=== PATIENT | male | born 1975 | race Caucasian/White ===

== ENCOUNTER 2017-02-23 12:52 | Emergency (ER) | payer BC ==
[2017-02-23] MEDS ORDERED: Proparacaine 0.5% Ophth Soln 15 ML Bottle ONE (13:49)
[2017-02-23] MEDS ORDERED: Proparacaine 0.5% Ophth Soln 15 ML Bottle EYERT ONE (14:04)
[2017-02-23] MEDS ORDERED: Diphtheria,Pertussis(Acell),Tetanus Vaccine 0.5 ML Syringe IM ONE (14:05)
--- NOTE | 2017-02-23 14:18 | EDM.PDOC ---
ED HPI GENERAL MEDICAL PROBLEM - General Chief Complaint: Eye Problems Stated Complaint: KAREEN IN HIS EYE Time Seen by Provider: 02/23/17 13:10 Source of Information: Reports: Patient History Limitations: Reports: No Limitations - History of Present Illness INITIAL COMMENTS - FREE TEXT/NARRATIVE: HISTORY AND PHYSICAL: []41-year-old male who was grinding metal yesterday and felt something hit his right eye History of Present Illness: []He continues to have pain today and presents to emergency department Review of Systems: As per history of present illness and below otherwise all systems reviewed and negative. Past medical history: As per history of present illness and as reviewed below otherwise noncontributory. Surgical history: As per history of present illness and as reviewed below otherwise noncontributory. Social history: No reported history of drug or alcohol abuse. Family history: As per history of present illness and as reviewed below otherwise noncontributory. Physical exam: Alert and oriented male who is answering questions appropriately in full sentences no shortness of breath. Proparacaine is introduced into the right eye HEENT: Atraumatic, normocehpalic, pupils reactive, negative for conjunctival pallor or scleral icterus, mucous membranes moist, throat clear, neck supple, nontender, trachea midline. Right eye is quite erythematous there at the 9 o' clock position on the edge of the pupil /cornea there is a foreign body Lungs: Clear to auscultation, breath sounds equal bilaterally, chest non tender. Heart: S1S2, regular, negative for clicks, rubs, or JVD. Extremities: Atraumatic, negative for cords or calf pain. Neurovascular unremarkable. Neuro: Awake, alert, oriented. Cranial nerves II through XII unremarkable. Cerebellum unremarkable. Motor and sensory unremarkable throughout. Exam nonfocal. Using a Q-tip across this area a portion of the metal came off on the Q-tip. Under a Wood's lamp Diagnostics: [Wood's lamp] Therapeutics: []15 drops Impression: [Foreign body to right eye] Plan: [Discharged to be seen at [facility] Dr. Vang will need to there are at 3 PM Please go to the main front door] Definitive disposition and diagnosis as appropriate pending reevaluation and review of above. - Related Data Allergies Allergy/AdvReac Type Severity Reaction Status Date / Time No Known Allergies Allergy Verified 02/23/17 13:57 Home Meds: Home Meds Cyanocobalamin/Folic AC/Vit B6 [Foltabs 800 Tablet] 0 mg PO DAILY 02/23/17 [ History] Omeprazole Magnesium [Prilosec] 0 mg PO DAILY 02/23/17 [History] Past Medical History - Past Health History Medical/Surgical History: Denies Medical/Surgical History Respiratory History: Reports: Sleep Apnea Other Respiratory History: sleep apnea went away with gastric bypass Gastrointestinal History: Reports: None Endocrine/Metabolic History: Reports: Other (See Below) Other Endocrine/Metabolic History: pre-diabetes - Infectious Disease History Infectious Disease History: Reports: Chicken Pox - Past Surgical History Respiratory Surgical History: Reports: None GI Surgical History: Reports: None Other GI Surgeries/Procedures: gastric bypass Social & Family History - Family History Family Medical History: Noncontributory - Tobacco Use Smoking Status *Q: Never Smoker Years of Tobacco use: 20 Packs/Tins Daily: 1 Used Tobacco, but Quit: No Second Hand Smoke Exposure: No - Caffeine Use Caffeine Use: Reports: Coffee - Alcohol Use Days Per Week of Alcohol Use: 7 Number of Drinks Per Day: 1 Total Drinks Per Week: 7 - Recreational Drug Use Recreational Drug Use: No ED ROS GENERAL - Review of Systems Review Of Systems: ROS reveals no pertinent complaints other than HPI. ED EXAM GENERAL W FULL EYE - Physical Exam Exam: See Below (see dictation) Course - Vital Signs Last Recorded V/S: Last Vital Signs Temp 36.3 C 02/23/17 13:47 Pulse 69 02/23/17 13:47 Resp 17 02/23/17 13:47 BP 133/80 02/23/17 13:47 Pulse Ox 97 02/23/17 13:47 - Orders/Labs/Meds Orders: Active Orders 24 hr Category Date Time Status Vaccines to be Administered [RC] PER UNIT ROUTINE Care 02/23/17 14:05 Ordered Meds: Medications Discontinued Medications Generic Name Dose Route Start Last Admin Trade Name Freq PRN Reason Stop Dose Admin Diphtheria/Tetanus/Acell Pertussis 0.5 ml 02/23/17 14:05 Adacel IM 02/23/17 14:06 .ONCE ONE Proparacaine HCl Confirm 02/23/17 13:49 Proparacaine 0.5% Ophth Soln Administered 02/23/17 13:50 Dose 15 ml .ROUTE .STK-MED ONE Proparacaine HCl 1 ml 02/23/17 14:04 Proparacaine 0.5% Ophth Soln EYERT 02/23/17 14:05 ONETIME ONE Departure - Departure Time of Disposition: 14:19 Disposition: Home, Self-Care 01 Condition: Good Clinical Impression: Foreign body of right eye Qualifiers: Encounter type: initial encounter Qualified Code(s): T15.91XA - Foreign body on external eye, part unspecified, right eye, initial encounter - Discharge Information Referrals: Yuridia Akins COTTON BROKER [Primary Care Provider] - - My Orders Last 24 Hours: My Active Orders 02/23/17 14:05 Vaccines to be Administered [RC] PER UNIT ROUTINE - Assessment/Plan Last 24 Hours: My Active Orders 02/23/17 14:05 Vaccines to be Administered [RC] PER UNIT ROUTINE
[2017-02-23 14:36] VITALS: BP 115/64
== END 2017-02-23 14:30 | disposition home or self-care (01) ==
LOC: MW.ED 12:52
DX: T15.01XA Foreign body in cornea, right eye, initial encounter (principal); Z23 Encounter for immunization
CPT/HCPCS: 65220; 90471; 90715; 99283; 99283-25

== ENCOUNTER 2018-09-14 13:05 | Emergency (ER) | payer BC ==
--- NOTE | 2018-09-14 13:16 | EDM.PDOC ---
ED HPI GENERAL MEDICAL PROBLEM - General Stated Complaint: BUMP ON RT SIDE OF HEAD Time Seen by Provider: 09/14/18 13:09 - History of Present Illness INITIAL COMMENTS - FREE TEXT/NARRATIVE: HISTORY AND PHYSICAL: History of present illness: Patient 42-year-old white male sensory concern of subcutaneous nodule in the postauricular region 2 days. He does not recall any trauma to no fever chills nausea vomiting or other complaints at this slightly tender Review of systems: As per history of present illness and below otherwise all systems reviewed and negative. Past medical history: As per history of present illness and as reviewed below otherwise noncontributory. Surgical history: As per history of present illness and as reviewed below otherwise noncontributory. Social history: No reported history of drug or alcohol abuse. Family history: As per history of present illness and as reviewed below otherwise noncontributory. Physical exam: HEENT: Atraumatic, normocephalic, pupils reactive, negative for conjunctival pallor or scleral icterus, mucous membranes moist, throat clear, neck supple, nontender, trachea midline. Patient has a subcutaneous nodule is noted in the postauricular region on the right this is suspicious for a lymph node. Lungs: Clear to auscultation, breath sounds equal bilaterally, chest nontender. Heart: S1S2, regular, negative for clicks, rubs, or JVD. Abdomen: Soft, nondistended, nontender. Negative for masses or hepatosplenomegaly. Negative for costovertebral tenderness. Pelvis: Stable nontender. Genitourinary: Deferred. Rectal: Deferred. Extremities: Atraumatic, negative for cords or calf pain. Neurovascular unremarkable. Neuro: Awake, alert, oriented. Cranial nerves II through XII unremarkable. Cerebellum unremarkable. Motor and sensory unremarkable throughout. Exam nonfocal. Diagnostics: None Therapeutics: None Impression: #1 subcutaneous nodule rule out adenitis Definitive disposition and diagnosis as appropriate pending reevaluation and review of above. - Related Data Allergies Allergy/AdvReac Type Severity Reaction Status Date / Time No Known Allergies Allergy Verified 02/23/17 13:57 Home Meds: Home Meds Cyanocobalamin/Folic AC/Vit B6 [Foltabs 800 Tablet] 0 mg PO DAILY 02/23/17 [ History] Omeprazole Magnesium [Prilosec] 0 mg PO DAILY 12/02/17 [History] Past Medical History - Past Health History Medical/Surgical History: Denies Medical/Surgical History Respiratory History: Reports: Sleep Apnea Other Respiratory History: sleep apnea went away with gastric bypass Gastrointestinal History: Reports: None Endocrine/Metabolic History: Reports: Other (See Below) Other Endocrine/Metabolic History: pre-diabetes - Infectious Disease History Infectious Disease History: Reports: Chicken Pox - Past Surgical History Respiratory Surgical History: Reports: None GI Surgical History: Reports: None Other GI Surgeries/Procedures: gastric bypass Social & Family History - Family History Family Medical History: Noncontributory - Caffeine Use Caffeine Use: Reports: Coffee ED ROS GENERAL - Review of Systems Review Of Systems: ROS reveals no pertinent complaints other than HPI. ED EXAM, GENERAL - Physical Exam Exam: See Below (See dictation) Departure - Departure Time of Disposition: 13:15 Disposition: Home, Self-Care 01 Condition: Good Clinical Impression: Subcutaneous nodule, Adenitis - Discharge Information Referrals: PCP,None [Primary Care Provider] - Additional Instructions: The following information is given to patients seen in the emergency department who are being discharged to home. This information is to outline your options for follow-up care. We provide all patients seen in our emergency department with a follow-up referral. The need for follow-up, as well as the timing and circumstances, are variable depending upon the specifics of your emergency department visit. If you don't have a primary care physician on staff, we will provide you with a referral. We always advise you to contact your personal physician following an emergency department visit to inform them of the circumstance of the visit and for follow-up with them and/or the need for any referrals to a consulting specialist. The emergency department will also refer you to a specialist when appropriate. This referral assures that you have the opportunity for followup care with a specialist. All of these measure are taken in an effort to provide you with optimal care, which includes your followup. Under all circumstances we always encourage you to contact your private physician who remains a resource for coordinating your care. When calling for followup care, please make the office aware that this follow-up is from your recent emergency room visit. If for any reason you are refused follow-up, please contact the [facility] emergency department at and asked to speak to the emergency department charge nurse. [facility] - General Surgery Professional [address], [address] [place] [address] Keflex as prescribed and follow-up private medical doctor and/or general surgery above: Schedule appointment return as needed as discussed Motrin/ Tylenol as directed
[2018-09-14 13:32] VITALS: BP 140/91
== END 2018-09-14 13:33 | disposition home or self-care (01) ==
LOC: MW.ED 13:05
DX: I88.8 Other nonspecific lymphadenitis (principal); R22.0 Localized swelling, mass and lump, head; R73.03 Prediabetes; Z79.899 Other long term (current) drug therapy
CPT/HCPCS: 99282

== ENCOUNTER 2021-01-11 23:44 | Inpatient (IN) | payer BC, MEDICAID, OTHER ==
--- NOTE | 2021-01-12 00:09 | EDM.PDOC ---
ED HPI GENERAL MEDICAL PROBLEM - General Chief Complaint: General Stated Complaint: ALCOHOL WITHDRAWL, TREMORS Time Seen by Provider: 01/11/21 23:46 Source of Information: Reports: Patient History Limitations: Reports: No Limitations - History of Present Illness INITIAL COMMENTS - FREE TEXT/NARRATIVE: 45-year-old male presents for alcohol withdrawal symptoms. Patient notes that he has had minor withdrawal symptoms in the past with some irritability and shakiness but nothing to the degree of today. He notes that he went on a "mills "drinking 2 L of alcohol a few days ago and made some bad decisions causing him to get into an argument with his friends. He made the decision that he needs to stop drinking. He stopped cold turkey. He states that over the last day he has developed shaking, tremors, anxiousness, headache, nausea, episode of vomiting earlier today. This evening he began to develop visual hallucinations and tactile sensations of bugs crawling on his skin. He read online that he could develop seizures which is never happened to him with alcohol withdrawal in the past and decided to seek medical attention. Generalized Pain Score (Numeric/FACES): 2 - Related Data Allergies Allergy/AdvReac Type Severity Reaction Status Date / Time No Known Allergies Allergy Verified 09/14/18 13:20 Home Meds: Home Meds . [No Known Home Meds] 09/14/18 [History] Past Medical History - Past Health History Medical/Surgical History: Denies Medical/Surgical History Respiratory History: Reports: Sleep Apnea Other Respiratory History: sleep apnea went away with gastric bypass Gastrointestinal History: Reports: None Endocrine/Metabolic History: Reports: Other (See Below) Other Endocrine/Metabolic History: pre-diabetes - Infectious Disease History Infectious Disease History: Reports: Chicken Pox - Past Surgical History Respiratory Surgical History: Reports: None GI Surgical History: Reports: Bariatric Procedure Other GI Surgeries/Procedures: gastric bypass Social & Family History - Family History Family Medical History: No Pertinent Family History - Caffeine Use Caffeine Use: Reports: Coffee ED ROS GENERAL - Review of Systems Review Of Systems: Comprehensive ROS is negative, except as noted in HPI. ED EXAM, GENERAL - Physical Exam Exam: See Below Exam Limited By: No Limitations General Appearance: Alert, WD/WN, Anxious, Other (Generalized tremors) Ears: Hearing Grossly Normal Throat/Mouth: Normal Voice, No Airway Compromise Head: Atraumatic, Normocephalic Neck: Normal Inspection Respiratory/Chest: No Respiratory Distress, Lungs Clear, Normal Breath Sounds, No Accessory Muscle Use Cardiovascular: Normal Peripheral Pulses, Tachycardia GI/Abdominal: Soft, Non-Tender Extremities: Normal Inspection Neurological: Alert, Normal Cognition, Normal Gait Psychiatric: Normal Affect, Normal Mood, Anxious Skin Exam: Warm, Intact, Normal Color, Other (mild diaphoresis) #1 Interpretation EKG Date: 01/12/21 Time: 12:26 Rhythm: NSR Rate (Beats/Min): 77 [place]: Normal P-Wave: Present QRS: Normal ST-T: Normal QT: Normal DC/PQ Interval: 138 Comparison: NA - No Prior EKG EKG Interpretation Comments: normal EKG Course - Vital Signs Last Recorded V/S: Last Vital Signs Temp 97.3 F 01/11/21 23:54 Pulse 117 H 01/11/21 23:54 Resp 18 01/12/21 01:29 BP 128/76 01/12/21 01:29 Pulse Ox 97 01/12/21 01:29 - Orders/Labs/Meds Orders: Active Orders 24 hr Category Date Time Status LORazepam [Ativan] Med 01/12/21 01:38 Once 1 mg IVPUSH ONETIME ONE Saline Lock Insert [OM.PC] Stat Oth 01/12/21 00:13 Ordered Labs: Laboratory Tests 01/12/21 01/12/21 01/12/21 Range/Units 00:02 00:02 00:15 WBC 11.67 H (4.0-11.0) K/uL RBC 4.81 (4.50-5.90) M/uL Hgb 16.5 (13.0-17.0) g/dL Hct 47.1 (38.0-50.0) % MCV 97.9 (80.0-98.0) fL MCH 34.3 H (27.0-32.0) pg MCHC 35.0 (31.0-37.0) g/dL RDW Std Deviation 42.0 (28.0-62.0) fl RDW Coeff of Greg 12 (11.0-15.0) % Plt Count 300 (150-400) K/uL MPV 9.90 (7.40-12.00) fL Neut % (Auto) 73.5 (48.0-80.0) % Lymph % (Auto) 15.2 L (16.0-40.0) % [place] % (Auto) 10.5 (0.0-15.0) % Eos % (Auto) 0.3 (0.0-7.0) % Baso % (Auto) 0.5 (0.0-1.5) % Neut # (Auto) 8.6 H (1.4-5.7) K/uL Lymph # (Auto) 1.8 (0.6-2.4) K/uL [place] # (Auto) 1.2 H (0.0-0.8) K/uL Eos # (Auto) 0.0 (0.0-0.7) K/uL Baso # (Auto) 0.1 (0.0-0.1) K/uL Sodium 137 (136-148) mmol/L Potassium 4.0 (3.5-5.1) mmol/L Chloride 98 (98-107) mmol/L Carbon Dioxide 25.7 (21.0-32.0) mmol/L BUN 11 (7.0-18.0) mg/dL Creatinine 1.1 (0.8-1.3) mg/dL Est Cr Clr Drug Dosing 80.12 mL/min Estimated GFR (MDRD) > 60.0 ml/min Glucose 123 H (74-106) mg/dL Calcium 10.3 H (8.5-10.1) mg/dL Magnesium 2.3 (1.8-2.4) mg/dL Total Bilirubin 1.1 H (0.2-1.0) mg/dL AST 81 H (15-37) IU/L ALT 41 (14-63) IU/L Alkaline Phosphatase 135 H (46-116) U/L Total Protein 7.8 (6.4-8.2) g/dL Albumin 4.2 (3.4-5.0) g/dL Globulin 3.6 (2.6-4.0) g/dL Albumin/Globulin Ratio 1.2 (0.9-1.6) Urine Opiates Screen POSITIVE (NEGATIVE) Ur Oxycodone Screen NEGATIVE (NEGATIVE) Urine Methadone Screen NEGATIVE (NEGATIVE) Ur Barbiturates Screen NEGATIVE (NEGATIVE) Ur Phencyclidine Scrn NEGATIVE (NEGATIVE) Ur Amphetamine Screen POSITIVE (NEGATIVE) U Methamphetamines Scrn POSITIVE (NEGATIVE) U Benzodiazepines Scrn NEGATIVE (NEGATIVE) U Cocaine Metab Screen NEGATIVE (NEGATIVE) U Marijuana (THC) Screen POSITIVE (NEGATIVE) Ethyl Alcohol <3 mg/dL SARS-CoV-2 RNA (MARIBEL) (NEGATIVE) 01/12/21 Range/Units 00:30 WBC (4.0-11.0) K/uL RBC (4.50-5.90) M/uL Hgb (13.0-17.0) g/dL Hct (38.0-50.0) % MCV (80.0-98.0) fL MCH (27.0-32.0) pg MCHC (31.0-37.0) g/dL RDW Std Deviation (28.0-62.0) fl RDW Coeff of Greg (11.0-15.0) % Plt Count (150-400) K/uL MPV (7.40-12.00) fL Neut % (Auto) (48.0-80.0) % Lymph % (Auto) (16.0-40.0) % [place] % (Auto) (0.0-15.0) % Eos % (Auto) (0.0-7.0) % Baso % (Auto) (0.0-1.5) % Neut # (Auto) (1.4-5.7) K/uL Lymph # (Auto) (0.6-2.4) K/uL [place] # (Auto) (0.0-0.8) K/uL Eos # (Auto) (0.0-0.7) K/uL Baso # (Auto) (0.0-0.1) K/uL Sodium (136-148) mmol/L Potassium (3.5-5.1) mmol/L Chloride (98-107) mmol/L Carbon Dioxide (21.0-32.0) mmol/L BUN (7.0-18.0) mg/dL Creatinine (0.8-1.3) mg/dL Est Cr Clr Drug Dosing mL/min Estimated GFR (MDRD) ml/min Glucose (74-106) mg/dL Calcium (8.5-10.1) mg/dL Magnesium (1.8-2.4) mg/dL Total Bilirubin (0.2-1.0) mg/dL AST (15-37) IU/L ALT (14-63) IU/L Alkaline Phosphatase (46-116) U/L Total Protein (6.4-8.2) g/dL Albumin (3.4-5.0) g/dL Globulin (2.6-4.0) g/dL Albumin/Globulin Ratio (0.9-1.6) Urine Opiates Screen (NEGATIVE) Ur Oxycodone Screen (NEGATIVE) Urine Methadone Screen (NEGATIVE) Ur Barbiturates Screen (NEGATIVE) Ur Phencyclidine Scrn (NEGATIVE) Ur Amphetamine Screen (NEGATIVE) U Methamphetamines Scrn (NEGATIVE) U Benzodiazepines Scrn (NEGATIVE) U Cocaine Metab Screen (NEGATIVE) U Marijuana (THC) Screen (NEGATIVE) Ethyl Alcohol mg/dL SARS-CoV-2 RNA (MARIBEL) NEGATIVE (NEGATIVE) Meds: Medications Discontinued Medications Generic Name Dose Route Start Last Admin Trade Name Freq PRN Reason Stop Dose Admin Sodium Chloride 1,000 mls @ 999 mls/hr 01/12/21 00:13 01/12/21 00:19 Normal Saline IV 01/12/21 01:13 999 mls/hr .Bolus ONE Administration Lorazepam 2 mg 01/12/21 00:14 01/12/21 00:18 Lorazepam 2 Mg/Ml Sdv IVPUSH 01/12/21 00:15 2 mg ONETIME ONE Administration - Re-Assessments/Exams Free Text/Narrative Re-Assessment/Exam: 01/12/21 00:17 CIWA of 24. Will give Ativan, IV fluid bolus. 01/12/21 00:59 Patient notes that he kicked something few days ago and has swelling of his right great toe. On exam it is ecchymotic and swollen. Will get x-ray imaging to rule out fracture. 01/12/21 01:08 Patient is feeling better after 2 mg lorazepam. No longer shaking, feeling much less anxious. 01/12/21 01:38 Patient does have a toe fracture. Will admit for alcohol withdrawal. Departure - Departure Time of Disposition: 01:39 Disposition: Admitted As Inpatient 66 Condition: Good Clinical Impression: Alcohol withdrawal Qualifiers: Complication of substance-induced condition: with unspecified complication Qualified Code(s): F10.239 - Alcohol dependence with withdrawal, unspecified - Discharge Information Referrals: Sara Crawley NP [Primary Care Provider] - Forms: ED Department Discharge Sepsis Event Note (ED) - Evaluation Sepsis Screening Result: No Definite Risk - Focused Exam Vital Signs: Vital Signs Temp Pulse Resp BP Pulse Ox 01/12/21 01:29 18 128/76 97 01/11/21 23:54 97.3 F 117 H 18 167/104 H 96 - My Orders Last 24 Hours: My Active Orders 01/12/21 00:13 Saline Lock Insert [OM.PC] Stat 01/12/21 01:38 LORazepam [Ativan] 1 mg IVPUSH ONETIME ONE - Assessment/Plan Last 24 Hours: My Active Orders 01/12/21 00:13 Saline Lock Insert [OM.PC] Stat 01/12/21 01:38 LORazepam [Ativan] 1 mg IVPUSH ONETIME ONE
[2021-01-12] MEDS ORDERED: Sodium Chloride 0.9% 1,000 ML IV ONE (00:13)
[2021-01-12] MEDS ORDERED: LORazepam 2 MG/ML SDV IVPUSH ONE ×2 (00:14→01:38)
[2021-01-12 00:38] LABS: BLOOD UREA NITROGEN,BUN 11 mg/dL (7.0-18.0); CARBON DIOXIDE,CO2 25.7 mmol/L (21.0-32.0); CHLORIDE,CL 98 mmol/L (98-107); GLUCOSE RANDOM 123 mg/dL (74-106); SODIUM,NA 137 mmol/L (136-148)
--- NOTE | 2021-01-12 01:34 | CR ---
INDICATION: Toe injury TECHNIQUE: Toe radiograph 3 views right 1st COMPARISON: None FINDINGS: Bone: There is a non displaced comminuted fracture present in the 1st proximal phalanx, likely extending to involve the distal articular surface. Joint: The metatarsophalangeal and interphalangeal joints are normal in appearance. Soft tissue: Unremarkable. No radiopaque foreign bodies are seen. IMPRESSION: 1. There is a non displaced comminuted fracture present in the 1st proximal phalanx, likely extending to involve the distal articular surface. Dictated by Arnoldo Jim MD @ 01/12/2021 1:33:15 AM Dictated by: Arnoldo Jim MD @ 01/12/2021 01:33:21 (Electronically Signed)
[2021-01-12] MEDS ORDERED: Thiamine 100 MG in Sodium Chloride 0.9% 100 ML IV SCH (01:45)
[2021-01-12] MEDS: Folic Acid 50 MG/10 ML MDV SUBCUT SCH ×2 (03:16→10:18)
--- NOTE | 2021-01-12 07:26 | PCM.HP.2 ---
H&P History of Present Illness - General Date of Service: 01/12/21 Admit Problem/Dx: Admission Diagnosis/Problem Admission Diagnosis/Problem Alcohol withdrawal syndrome - History of Present Illness Initial Comments - Free Text/Narative: 45-year-old male with a history of alcohol abuse presented to the ER for alcohol withdrawal. Last drink was Saturday night. Patient stated he had a history of minor withdrawal in the past with irritability and tremors but this episode is the worst. Patient has been drinking 2 L of vodka daily and stopped on Saturday, 4 days ago. Patient notes increased stressors in life including disagreement with friends and roommates. Patient states he stopped drinking alcohol completely and developed irritability, anxiousness, tremors, headaches, nausea and vomiting. Patient stated he began developing visual and tactile hallucinations this evening and feels as if bugs are crawling on him. No history of seizures. Patient read online that he may develop seizures so he came into the ER. Patient states he kicked a door a few days ago and also complains of swelling of his right great toe which appears ecchymotic and edematous. ED course: Patient presented with anxiousness and generalized tremors. CIWA score 24. EKG normal sinus rhythm. Temperature 97.3, pulse 117, RR 18, BP 128/76, 97% on room air. Patient received 1 mg lorazepam IV. WBC 11.67. Hgb 16.5. MCV 97.9. Sodium 137. Potassium 4.0. Chloride 98. Bicarb 25.7. BUN 11. Creatinine 1.1. Glucose 123. Calcium 10.3. Magnesium 2.3. Total bilirubin 1.1. AST 81. ALT 41. Alk phos 135. Urine toxicity positive for opiates, amphetamine, methamphetamine, and marijuana. EtOH level < 3. SARS-CoV-2 negative. Patient received 1 L normal saline bolus and 2 mg IV lorazepam. Right toe x-ray: Nondisplaced comminuted fracture and first proximal phalanx, likely extending to involve distal articular surface. Past medical history: History of gastric bypass, history of type II DM, hypertriglyceridemia. Upon chart review, patient weighed 223 pounds on May 23, 2020. Hemoglobin A1c in 2018 was 5.6. Lipid panel was within normal limits. Home medications: None. Allergies: No known drug allergies. Social history: 1-2liters of Vodka daily x 1 year. Smoking 1ppd x 18 years Daily marijuana Lives with room mates here in town. Originally from [place]. Currently unemployed. Generalized Pain Score (Numeric/FACES): 2 right big toe Pain Score (Numeric/FACES): 6 - Related Data Allergies/Adverse Reactions: Allergies Allergy/AdvReac Type Severity Reaction Status Date / Time No Known Allergies Allergy Verified 09/14/18 13:20 Home Medications: Home Meds . [No Known Home Meds] 09/14/18 [History] Multivitamin [Multi-Vitamin Daily] 1 tab PO DAILY 01/12/21 [History] Past Medical History - Past Health History Medical/Surgical History: Denies Medical/Surgical History HEENT History: Reports: Other (See Below) Other HEENT History: wears glasses, dentures (upper and lower) Respiratory History: Reports: Sleep Apnea Other Respiratory History: sleep apnea went away with gastric bypass Gastrointestinal History: Reports: None Endocrine/Metabolic History: Reports: Other (See Below) Other Endocrine/Metabolic History: pre-diabetes ( went away after gastric bypass) - Infectious Disease History Infectious Disease History: Reports: Chicken Pox, Influenza, Measles - Past Surgical History Respiratory Surgical History: Reports: None GI Surgical History: Reports: Bariatric Procedure Other GI Surgeries/Procedures: gastric bypass 2016 Social & Family History - Family History Family Medical History: No Pertinent Family History - Tobacco Use Tobacco Use Status *Q: Current Every Day Tobacco User Years of Tobacco use: 30 Packs/Tins Daily: 1 Second Hand Smoke Exposure: No - Caffeine Use Caffeine Use: Reports: Coffee, Soda, Tea - Alcohol Use Days Per Week of Alcohol Use: 7 Number of Drinks Per Day: 1 Total Drinks Per Week: 7 Date of Last Drink: 01/09/21 Time of Last Drink: 22:00 - Recreational Drug Use Recreational Drug Use: Yes Recreational Drug Type: Reports: Marijuana/Hashish Recreational Drug Use Frequency: Weekly H&P Review of Systems - Review of Systems: Review Of Systems: See Below General: Reports: Diaphoresis. Denies: Fever, Chills HEENT: Reports: Headaches. Denies: Hearing Changes, Vertigo, Visual Changes Pulmonary: Denies: Shortness of Breath, Wheezing, Cough, Sputum Cardiovascular: Denies: Chest Pain, Palpitations, Dyspnea on Exertion, Syncope Gastrointestinal: Reports: Decreased Appetite, Vomiting. Denies: Abdominal Pain, Black Stool, Bloody Stool, Constipation, Hematemesis, Hematochezia, Melena Genitourinary: Denies: Dysuria, Frequency, Burning, Hematuria Musculoskeletal: Reports: Foot Pain Skin: Reports: Diaphoresis, Lesions. Denies: Jaundice, Pallor, Rash Psychiatric: Reports: Hallucinations Neurological: Reports: Dizziness, Headache, Paresthesia, Tremors. Denies: Numbness, Seizure, Difficulty Walking Hematologic/Lymphatic: Denies: Anemia, Easy Bleeding, Easy Bruising Exam - Exam Exam: See Below - Vital Signs Vital Signs: Last Vital Signs Temp 99.1 F 01/12/21 04:00 Pulse 84 01/12/21 04:00 Resp 18 01/12/21 04:00 BP 122/78 01/12/21 04:00 Pulse Ox 95 01/12/21 04:00 Weight: 190 lb 1.6 oz - Exam General: Alert, Cooperative HEENT: EOMI (No nystagmus noted.), Mucosa Moist & [place], Nares Patent, Normal Nasal Septum, Pupils Equal, Pupils Reactive, Scleral Icterus Neck: Supple, Trachea Midline Lungs: Clear to Auscultation, Normal Respiratory Effort Cardiovascular: Regular Rate, Regular Rhythm GI/Abdominal Exam: Soft, Non-Tender Back Exam: Normal Inspection. No: CVA Tenderness (L), CVA Tenderness (R) Extremities: Joint Swelling, Redness, Other (Right foot: Right great toe erythematous and swollen. Tender to touch on the medial foot. Onychomycosis of the right great toenail.). No: Pedal Edema Peripheral Pulses: 2+: Dorsalis Pedis (L), Dorsalis Pedis (R) Skin: Warm Neurological: No: Focal Deficit Neuro Extensive - Motor, Sensory, Reflexes: Abnormal Finger to Nose, Tremor. No: Ataxia Psychiatric: Anxious, Withdrawal Symptoms. No: Agitated, Suicidal Ideation, Homicidal Ideation - Patient Data Lab Results Last 24 hrs: Laboratory Results - last 24 hr 01/12/21 01/12/21 01/12/21 Range/Units 00:02 00:02 00:15 WBC 11.67 H (4.0-11.0) K/uL RBC 4.81 (4.50-5.90) M/uL Hgb 16.5 (13.0-17.0) g/dL Hct 47.1 (38.0-50.0) % MCV 97.9 (80.0-98.0) fL MCH 34.3 H (27.0-32.0) pg MCHC 35.0 (31.0-37.0) g/dL RDW Std Deviation 42.0 (28.0-62.0) fl RDW Coeff of Greg 12 (11.0-15.0) % Plt Count 300 (150-400) K/uL MPV 9.90 (7.40-12.00) fL Neut % (Auto) 73.5 (48.0-80.0) % Lymph % (Auto) 15.2 L (16.0-40.0) % [place] % (Auto) 10.5 (0.0-15.0) % Eos % (Auto) 0.3 (0.0-7.0) % Baso % (Auto) 0.5 (0.0-1.5) % Neut # (Auto) 8.6 H (1.4-5.7) K/uL Lymph # (Auto) 1.8 (0.6-2.4) K/uL [place] # (Auto) 1.2 H (0.0-0.8) K/uL Eos # (Auto) 0.0 (0.0-0.7) K/uL Baso # (Auto) 0.1 (0.0-0.1) K/uL Sodium 137 (136-148) mmol/L Potassium 4.0 (3.5-5.1) mmol/L Chloride 98 (98-107) mmol/L Carbon Dioxide 25.7 (21.0-32.0) mmol/L BUN 11 (7.0-18.0) mg/dL Creatinine 1.1 (0.8-1.3) mg/dL Est Cr Clr Drug Dosing 80.12 mL/min Estimated GFR (MDRD) > 60.0 ml/min Glucose 123 H (74-106) mg/dL Calcium 10.3 H (8.5-10.1) mg/dL Magnesium 2.3 (1.8-2.4) mg/dL Total Bilirubin 1.1 H (0.2-1.0) mg/dL AST 81 H (15-37) IU/L ALT 41 (14-63) IU/L Alkaline Phosphatase 135 H (46-116) U/L Total Protein 7.8 (6.4-8.2) g/dL Albumin 4.2 (3.4-5.0) g/dL Globulin 3.6 (2.6-4.0) g/dL Albumin/Globulin Ratio 1.2 (0.9-1.6) Urine Opiates Screen POSITIVE (NEGATIVE) Ur Oxycodone Screen NEGATIVE (NEGATIVE) Urine Methadone Screen NEGATIVE (NEGATIVE) Ur Barbiturates Screen NEGATIVE (NEGATIVE) Ur Phencyclidine Scrn NEGATIVE (NEGATIVE) Ur Amphetamine Screen POSITIVE (NEGATIVE) U Methamphetamines Scrn POSITIVE (NEGATIVE) U Benzodiazepines Scrn NEGATIVE (NEGATIVE) U Cocaine Metab Screen NEGATIVE (NEGATIVE) U Marijuana (THC) Screen POSITIVE (NEGATIVE) Ethyl Alcohol <3 mg/dL SARS-CoV-2 RNA (MARIBEL) (NEGATIVE) 01/12/21 Range/Units 00:30 WBC (4.0-11.0) K/uL RBC (4.50-5.90) M/uL Hgb (13.0-17.0) g/dL Hct (38.0-50.0) % MCV (80.0-98.0) fL MCH (27.0-32.0) pg MCHC (31.0-37.0) g/dL RDW Std Deviation (28.0-62.0) fl RDW Coeff of Greg (11.0-15.0) % Plt Count (150-400) K/uL MPV (7.40-12.00) fL Neut % (Auto) (48.0-80.0) % Lymph % (Auto) (16.0-40.0) % [place] % (Auto) (0.0-15.0) % Eos % (Auto) (0.0-7.0) % Baso % (Auto) (0.0-1.5) % Neut # (Auto) (1.4-5.7) K/uL Lymph # (Auto) (0.6-2.4) K/uL [place] # (Auto) (0.0-0.8) K/uL Eos # (Auto) (0.0-0.7) K/uL Baso # (Auto) (0.0-0.1) K/uL Sodium (136-148) mmol/L Potassium (3.5-5.1) mmol/L Chloride (98-107) mmol/L Carbon Dioxide (21.0-32.0) mmol/L BUN (7.0-18.0) mg/dL Creatinine (0.8-1.3) mg/dL Est Cr Clr Drug Dosing mL/min Estimated GFR (MDRD) ml/min Glucose (74-106) mg/dL Calcium (8.5-10.1) mg/dL Magnesium (1.8-2.4) mg/dL Total Bilirubin (0.2-1.0) mg/dL AST (15-37) IU/L ALT (14-63) IU/L Alkaline Phosphatase (46-116) U/L Total Protein (6.4-8.2) g/dL Albumin (3.4-5.0) g/dL Globulin (2.6-4.0) g/dL Albumin/Globulin Ratio (0.9-1.6) Urine Opiates Screen (NEGATIVE) Ur Oxycodone Screen (NEGATIVE) Urine Methadone Screen (NEGATIVE) Ur Barbiturates Screen (NEGATIVE) Ur Phencyclidine Scrn (NEGATIVE) Ur Amphetamine Screen (NEGATIVE) U Methamphetamines Scrn (NEGATIVE) U Benzodiazepines Scrn (NEGATIVE) U Cocaine Metab Screen (NEGATIVE) U Marijuana (THC) Screen (NEGATIVE) Ethyl Alcohol mg/dL SARS-CoV-2 RNA (MARIBEL) NEGATIVE (NEGATIVE) Result Diagrams: 01/12/21 00:02 01/12/21 00:02 Sepsis Event Note - Evaluation Sepsis Screening Result: No Definite Risk - Focused Exam Vital Signs: Vital Signs Temp Pulse Resp BP Pulse Ox 01/12/21 04:00 99.1 F 84 18 122/78 95 01/12/21 02:49 97.5 F 83 18 131/83 97 01/12/21 01:29 82 18 128/76 97 01/11/21 23:54 97.3 F 117 H 18 167/104 H 96 - Problem List (1) Alcohol withdrawal SNOMED Code(s): 648147916 ICD Code: F10.239 - ALCOHOL DEPENDENCE WITH WITHDRAWAL, UNSPECIFIED Status: Acute Current Visit: Yes Qualifiers: Complication of substance-induced condition: with unspecified complication Qualified Code(s): F10.239 - Alcohol dependence with withdrawal, unspecified (2) Fracture of proximal phalanx of toe of right foot SNOMED Code(s): 92497962 ICD Code: S92.911A - UNSP FRACTURE OF RIGHT TOE(S), INIT FOR CLOS FX St atus: Acute Current Visit: Yes (3) Tobacco dependence SNOMED Code(s): 29613688 ICD Code: F17.200 - NICOTINE DEPENDENCE, UNSPECIFIED, UNCOMPLICATED Status: Acute Current Visit: Yes Problem List Initiated/Reviewed/Updated: Yes Orders Last 24hrs: Active Orders 24 hr Category Date Time Status Patient Status [ADT] Routine ADT 01/12/21 01:39 Active Folic Acid Med 01/12/21 01:45 Active 1 mg SUBCUT DAILY LORazepam [Ativan] Med 01/12/21 01:46 Active See Protocol IVPUSH Q4H PRN Thiamine [Vitamin B-1] 100 mg Med 01/12/21 01:45 Active Sodium Chloride 0.9% [Normal Saline] 100 ml IV DAILY Saline Lock Insert [OM.PC] Stat Oth 01/12/21 00:13 Ordered Medication Orders Folic Acid (Folic Acid 50 Mg/10 Ml Mdv) 1 mg SUBCUT DAILY [facility] Last Admin: 01/12/21 03:16 Dose: 1 mg Documented by: ANGELIKA Thiamine HCl 100 mg/ Sodium (Chloride) 101 mls @ 202 mls/hr IV DAILY [facility] Last Admin: 01/12/21 03:18 Dose: 202 mls/hr Documented by: ANGELIKA Lorazepam (Lorazepam 2 Mg/Ml Sdv) 0 mg IVPUSH Q4H PRN; Protocol PRN Reason: CIWAA Assessment/Plan Comment:: Alcohol withdrawal syndrome: Vital signs stable. No history of seizures. -CIWA protocol with lorazepam -Thiamine 100 mg IV daily -Folic acid 1 mg daily -Zofran 4 mg IV prn -Uric acid level. -Supportive care. First proximal phalanx nondisplaced fracture: -[place]ito tape 1st toe to 2nd toe. -Hard sole shoe. -Ice for 20 mins 4 times daily. Elevate foot. Tobacco abuse: Nicotine patch daily.
[2021-01-12] MEDS ORDERED: Ondansetron 4 MG/2 ML SDV IVPUSH PRN (08:24)
[2021-01-12] MEDS ORDERED: Albuterol/Ipratropium 3.0-0.5 MG/3 ML Neb Soln NEB PRN (08:24)
[2021-01-12] MEDS: Nicotine 14 MG/24 Hr Patch TRDERM SCH (11:26)
[2021-01-12] MEDS: LORazepam 2 MG/ML SDV IVPUSH PRN (11:52)
[2021-01-12] MEDS: Ibuprofen 400 MG Tab PO PRN ×2 (15:33→23:47)
[2021-01-12] MEDS: Thiamine 200 MG/2 ML MDV IV SCH (20:21)
[2021-01-13 06:49] LABS: BLOOD UREA NITROGEN,BUN 19 mg/dL (7.0-18.0); CARBON DIOXIDE,CO2 24.9 mmol/L (21.0-32.0); CHLORIDE,CL 105 mmol/L (98-107); GLUCOSE RANDOM 92 mg/dL (74-106); POTASSIUM,K 3.5 mmol/L (3.5-5.1); SODIUM,NA 141 mmol/L (136-148)
[2021-01-13] MEDS ORDERED: Potassium Chloride 20 MEQ Tab.ER PO ONE (08:15)
[2021-01-13] MEDS: Folic Acid 50 MG/10 ML MDV SUBCUT SCH (09:00)
[2021-01-13] MEDS: Nicotine 14 MG/24 Hr Patch TRDERM SCH (09:02)
--- NOTE | 2021-01-13 09:19 | PCM.PN ---
- General Info Date of Service: 01/13/21 Admission Dx/Problem (Free Text): Admission Diagnosis/Problem Admission Diagnosis/Problem Alcohol withdrawal syndrome Subjective Update: Patient seen at bedside. No acute distress. Patient does not appear to be diaphoretic or have tremors. He states he slept 4 hours last night. Patient states he still having some visual and tactile hallucinations while he is in the bathroom. Complains of restlessness and constantly changing position throughout the night while attempting to sleep. Continues to have foot pain and is not wearing hard soled shoe that was provided. Received lorazepam at midnight. Received ibuprofen 400 mg 2 times overnight for foot pain. - Review of Systems General: Reports: Fatigue, Night Sweats. Denies: Fever, Chills HEENT: Reports: Headaches Pulmonary: Denies: Shortness of Breath, Pleuritic Chest Pain, Cough Cardiovascular: Reports: Palpitations. Denies: Chest Pain, Orthopnea, Lightheadedness Gastrointestinal: Reports: Nausea. Denies: Abdominal Pain, Constipation, Vomiting Genitourinary: Denies: Dysuria, Hematuria Musculoskeletal: Reports: Foot Pain, Joint Pain Skin: Reports: Diaphoresis. Denies: Rash Neurological: Denies: Confusion, Dizziness, Seizure Psychiatric: Reports: Agitation, Hallucinations. Denies: Suicidal Ideation, Homicidal Ideation - Patient Data Vitals - Most Recent: Last Vital Signs Temp 97.1 F 01/13/21 07:41 Pulse 71 01/13/21 07:41 Resp 19 01/13/21 07:41 BP 112/71 01/13/21 07:41 Pulse Ox 94 L 01/13/21 07:41 Weight - Most Recent: 190 lb 1.6 oz I&O - Last 24 Hours: Intake & Output 01/12/21 01/13/21 01/13/21 22:59 06:59 14:59 Intake Total 1000 950 Output Total 200 Balance 1000 750 Lab Results Last 24 Hours: Laboratory Results - last 24 hr 01/12/21 01/12/21 01/13/21 Range/Units 09:12 09:12 05:27 WBC 7.24 (4.0-11.0) K/uL RBC 4.15 L (4.50-5.90) M/uL Hgb 14.3 (13.0-17.0) g/dL Hct 41.6 (38.0-50.0) % MCV 100.2 H (80.0-98.0) fL MCH 34.5 H (27.0-32.0) pg MCHC 34.4 (31.0-37.0) g/dL RDW Std Deviation 46.6 (28.0-62.0) fl RDW Coeff of Greg 13 (11.0-15.0) % Plt Count 229 (150-400) K/uL MPV 10.50 (7.40-12.00) fL Nucleated RBC % 0.0 /100WBC Nucleated RBCs # 0 K/uL Sodium (136-148) mmol/L Potassium (3.5-5.1) mmol/L Chloride (98-107) mmol/L Carbon Dioxide (21.0-32.0) mmol/L BUN (7.0-18.0) mg/dL Creatinine (0.8-1.3) mg/dL Est Cr Clr Drug Dosing mL/min Estimated GFR (MDRD) ml/min Glucose (74-106) mg/dL Uric Acid 6.7 (2.6-7.2) mg/dL Calcium (8.5-10.1) mg/dL Phosphorus 4.8 H (2.6-4.7) mg/dL Magnesium (1.8-2.4) mg/dL Total Bilirubin (0.2-1.0) mg/dL AST (15-37) IU/L ALT (14-63) IU/L Alkaline Phosphatase (46-116) U/L Total Protein (6.4-8.2) g/dL Albumin (3.4-5.0) g/dL Globulin (2.6-4.0) g/dL Albumin/Globulin Ratio (0.9-1.6) 01/13/21 Range/Units 05:27 WBC (4.0-11.0) K/uL RBC (4.50-5.90) M/uL Hgb (13.0-17.0) g/dL Hct (38.0-50.0) % MCV (80.0-98.0) fL MCH (27.0-32.0) pg MCHC (31.0-37.0) g/dL RDW Std Deviation (28.0-62.0) fl RDW Coeff of Greg (11.0-15.0) % Plt Count (150-400) K/uL MPV (7.40-12.00) fL Nucleated RBC % /100WBC Nucleated RBCs # K/uL Sodium 141 (136-148) mmol/L Potassium 3.5 (3.5-5.1) mmol/L Chloride 105 (98-107) mmol/L Carbon Dioxide 24.9 (21.0-32.0) mmol/L BUN 19 H (7.0-18.0) mg/dL Creatinine 0.8 (0.8-1.3) mg/dL Est Cr Clr Drug Dosing 110.17 mL/min Estimated GFR (MDRD) > 60.0 ml/min Glucose 92 (74-106) mg/dL Uric Acid (2.6-7.2) mg/dL Calcium 8.2 L (8.5-10.1) mg/dL Phosphorus 4.9 H (2.6-4.7) mg/dL Magnesium 2.2 (1.8-2.4) mg/dL Total Bilirubin 0.7 (0.2-1.0) mg/dL AST 66 H (15-37) IU/L ALT 32 (14-63) IU/L Alkaline Phosphatase 96 (46-116) U/L Total Protein 6.5 (6.4-8.2) g/dL Albumin 3.0 L (3.4-5.0) g/dL Globulin 3.5 (2.6-4.0) g/dL Albumin/Globulin Ratio 0.9 (0.9-1.6) Med Orders - Current: Current Medications Albuterol/Ipratropium (Albuterol/Ipratropium 3.0-0.5 Mg/3 Ml Neb Soln) 3 ml NEB Q4HRRT PRN PRN Reason: Shortness Of Breath/wheezing Folic Acid (Folic Acid 50 Mg/10 Ml Mdv) 1 mg SUBCUT DAILY [facility] Last Admin: 01/13/21 09:00 Dose: 1 mg Documented by: Ibuprofen (Ibuprofen 400 Mg Tab) 400 mg PO Q8H PRN PRN Reason: Pain Last Admin: 01/12/21 23:47 Dose: 400 mg Documented by: Lorazepam (Lorazepam 2 Mg/Ml Sdv) 0 mg IVPUSH Q4H PRN; Protocol PRN Reason: CIWAA Last Admin: 01/13/21 00:00 Dose: 1 mg Documented by: Nicotine (Nicotine 14 Mg/24 Hr Patch) 14 mg TRDERM DAILY [facility] Last Admin: 01/13/21 09:02 Dose: 14 mg Documented by: Ondansetron HCl (Ondansetron 4 Mg/2 Ml Sdv) 4 mg IVPUSH Q4H PRN PRN Reason: Nausea/Vomiting Thiamine HCl (Thiamine 200 Mg/2 Ml Mdv) 100 mg IV Q24H [facility] Last Admin: 01/12/21 20:21 Dose: 100 mg Documented by: Discontinued Medications Sodium Chloride (Normal Saline) 1,000 mls @ 999 mls/hr IV .Bolus ONE Stop: 01/12/21 01:13 Last Admin: 01/12/21 00:19 Dose: 999 mls/hr Documented by: Thiamine HCl 100 mg/ Sodium (Chloride) 101 mls @ 202 mls/hr IV DAILY [facility] Last Admin: 01/12/21 03:18 Dose: 202 mls/hr Documented by: Lorazepam (Lorazepam 2 Mg/Ml Sdv) 2 mg IVPUSH ONETIME ONE Stop: 01/12/21 00:15 Last Admin: 01/12/21 00:18 Dose: 2 mg Documented by: Lorazepam (Lorazepam 2 Mg/Ml Sdv) 1 mg IVPUSH ONETIME ONE Stop: 01/12/21 01:39 Last Admin: 01/12/21 01:58 Dose: 1 mg Documented by: Potassium Chloride (Potassium Chloride 20 Meq Tab.Er) 40 meq PO ONETIME ONE Stop: 01/13/21 08:16 Last Admin: 01/13/21 09:10 Dose: 40 meq Documented by: - Exam General: Alert, Oriented, Cooperative, Mild Distress, Other (Pressured speech.) Neck: Supple, Trachea Midline Lungs: Clear to Auscultation, Normal Respiratory Effort Cardiovascular: Regular Rate, Regular Rhythm GI/Abdominal Exam: Normal Bowel Sounds, Soft, Non-Tender, No Distention Extremities: Other (Right foot: Great toe is xavier taped to second toe. Distal forefoot wrapped. Restricted range of motion of great toe due to pain. Medial filter press tender head to touch.) Peripheral Pulses: 2+: Dorsalis Pedis (L), Dorsalis Pedis (R) Skin: Warm, Intact, Moist Neurological: No New Focal Deficit Psy/Mental Status: Alert, Anxious - Patient Data Lab Results Last 24 hrs: Laboratory Results - last 24 hr 01/12/21 01/12/21 01/13/21 Range/Units 09:12 09:12 05:27 WBC 7.24 (4.0-11.0) K/uL RBC 4.15 L (4.50-5.90) M/uL Hgb 14.3 (13.0-17.0) g/dL Hct 41.6 (38.0-50.0) % MCV 100.2 H (80.0-98.0) fL MCH 34.5 H (27.0-32.0) pg MCHC 34.4 (31.0-37.0) g/dL RDW Std Deviation 46.6 (28.0-62.0) fl RDW Coeff of Greg 13 (11.0-15.0) % Plt Count 229 (150-400) K/uL MPV 10.50 (7.40-12.00) fL Nucleated RBC % 0.0 /100WBC Nucleated RBCs # 0 K/uL Sodium (136-148) mmol/L Potassium (3.5-5.1) mmol/L Chloride (98-107) mmol/L Carbon Dioxide (21.0-32.0) mmol/L BUN (7.0-18.0) mg/dL Creatinine (0.8-1.3) mg/dL Est Cr Clr Drug Dosing mL/min Estimated GFR (MDRD) ml/min Glucose (74-106) mg/dL Uric Acid 6.7 (2.6-7.2) mg/dL Calcium (8.5-10.1) mg/dL Phosphorus 4.8 H (2.6-4.7) mg/dL Magnesium (1.8-2.4) mg/dL Total Bilirubin (0.2-1.0) mg/dL AST (15-37) IU/L ALT (14-63) IU/L Alkaline Phosphatase (46-116) U/L Total Protein (6.4-8.2) g/dL Albumin (3.4-5.0) g/dL Globulin (2.6-4.0) g/dL Albumin/Globulin Ratio (0.9-1.6) 01/13/21 Range/Units 05:27 WBC (4.0-11.0) K/uL RBC (4.50-5.90) M/uL Hgb (13.0-17.0) g/dL Hct (38.0-50.0) % MCV (80.0-98.0) fL MCH (27.0-32.0) pg MCHC (31.0-37.0) g/dL RDW Std Deviation (28.0-62.0) fl RDW Coeff of Greg (11.0-15.0) % Plt Count (150-400) K/uL MPV (7.40-12.00) fL Nucleated RBC % /100WBC Nucleated RBCs # K/uL Sodium 141 (136-148) mmol/L Potassium 3.5 (3.5-5.1) mmol/L Chloride 105 (98-107) mmol/L Carbon Dioxide 24.9 (21.0-32.0) mmol/L BUN 19 H (7.0-18.0) mg/dL Creatinine 0.8 (0.8-1.3) mg/dL Est Cr Clr Drug Dosing 110.17 mL/min Estimated GFR (MDRD) > 60.0 ml/min Glucose 92 (74-106) mg/dL Uric Acid (2.6-7.2) mg/dL Calcium 8.2 L (8.5-10.1) mg/dL Phosphorus 4.9 H (2.6-4.7) mg/dL Magnesium 2.2 (1.8-2.4) mg/dL Total Bilirubin 0.7 (0.2-1.0) mg/dL AST 66 H (15-37) IU/L ALT 32 (14-63) IU/L Alkaline Phosphatase 96 (46-116) U/L Total Protein 6.5 (6.4-8.2) g/dL Albumin 3.0 L (3.4-5.0) g/dL Globulin 3.5 (2.6-4.0) g/dL Albumin/Globulin Ratio 0.9 (0.9-1.6) Result Diagrams: 01/13/21 05:27 01/13/21 05:27 Sepsis Event Note - Evaluation Sepsis Screening Result: No Definite Risk - Focused Exam Vital Signs: Vital Signs Temp Pulse Resp BP Pulse Ox 01/13/21 07:41 97.1 F 71 19 112/71 94 L 01/13/21 04:58 97.7 F 81 19 121/83 96 01/13/21 00:04 97.7 F 82 18 122/91 H 97 - Problem List & Annotations (1) Alcohol withdrawal SNOMED Code(s): 344565053 Code(s): F10.239 - ALCOHOL DEPENDENCE WITH WITHDRAWAL, UNSPECIFIED Status: Acute Current Visit: Yes Qualifiers: Complication of substance-induced condition: with unspecified complication Qualified Code(s): F10.239 - Alcohol dependence with withdrawal, unspecified (2) Fracture of proximal phalanx of toe of right foot SNOMED Code(s): 45403081 Code(s): S92.911A - UNSP FRACTURE OF RIGHT TOE(S), INIT FOR CLOS FX Status: Acute Current Visit: Yes (3) Tobacco dependence SNOMED Code(s): 25855305 Code(s): F17.200 - NICOTINE DEPENDENCE, UNSPECIFIED, UNCOMPLICATED Status: Acute Current Visit: Yes - Problem List Review Problem List Initiated/Reviewed/Updated: Yes - My Orders Last 24 Hours: My Active Orders 01/12/21 08:24 Ambulate [RC] ASDIRECTED Oxygen Therapy [RC] PRN VTE/DVT Education [RC] PER UNIT ROUTINE Vital Signs [RC] Q4H Consult to Spiritual Care [CONS] Routine Albuterol/Ipratropium [DuoNeb 3.0-0.5 MG/3 ML] 3 ml NEB Q4HRRT PRN Ondansetron [Zofran] 4 mg IVPUSH Q4H PRN Resuscitation Status Routine 01/12/21 08:25 Sequential Compression Device [OM.PC] Per Unit Routine 01/12/21 08:26 Antiembolic Devices [RC] PER UNIT ROUTINE 01/12/21 08:27 RT Aerosol Therapy [RC] ASDIRECTED 01/12/21 09:25 Splinting [RC] ASDIRECTED 01/12/21 10:54 DME for Discharge [COMM] Stat 01/12/21 11:00 Nicotine [Habitrol] 14 mg TRDERM DAILY 01/12/21 13:45 Ibuprofen [Motrin] 400 mg PO Q8H PRN 01/14/21 05:11 CBC W/O DIFF,HEMOGRAM [HEME] DAILY COMPREHENSIVE METABOLIC PN,CMP [CHEM] DAILY MAGNESIUM [CHEM] DAILY 01/15/21 05:11 CBC W/O DIFF,HEMOGRAM [HEME] DAILY COMPREHENSIVE METABOLIC PN,CMP [CHEM] DAILY MAGNESIUM [CHEM] DAILY 01/16/21 05:11 CBC W/O DIFF,HEMOGRAM [HEME] DAILY COMPREHENSIVE METABOLIC PN,CMP [CHEM] DAILY MAGNESIUM [CHEM] DAILY - Plan Plan:: Alcohol withdrawal syndrome: Vital signs stable. No history of seizures. -CIWA protocol with lorazepam -Thiamine 100 mg IV daily -Folic acid 1 mg daily -Zofran 4 mg IV prn -Supportive care. -Monitor magnesium and phosphorus. Replete as indicated. First proximal phalanx nondisplaced fracture: -Xavier tape 1st toe to 2nd toe. -Hard sole shoe. -Ice for 20 mins 4 times daily. Elevate foot. Tobacco abuse: Nicotine patch daily.
[2021-01-13] MEDS: Ibuprofen 400 MG Tab PO PRN (15:57)
[2021-01-13] MEDS: Thiamine 200 MG/2 ML MDV IV SCH (21:36)
[2021-01-13] MEDS: LORazepam 2 MG/ML SDV IVPUSH PRN ×2 (22:56)
[2021-01-14] MEDS: Ibuprofen 400 MG Tab PO PRN ×2 (01:13→11:33)
[2021-01-14 08:10] LABS: BLOOD UREA NITROGEN,BUN 17 mg/dL (7.0-18.0); CARBON DIOXIDE,CO2 23.2 mmol/L (21.0-32.0); CHLORIDE,CL 106 mmol/L (98-107); GLUCOSE RANDOM 100 mg/dL (74-106); POTASSIUM,K 4.3 mmol/L (3.5-5.1); SODIUM,NA 139 mmol/L (136-148)
[2021-01-14] MEDS: Nicotine 14 MG/24 Hr Patch TRDERM SCH (09:11)
[2021-01-14] MEDS: Folic Acid 50 MG/10 ML MDV SUBCUT SCH (09:12)
--- NOTE | 2021-01-14 11:46 | PCM.PN ---
- General Info Date of Service: 01/14/21 Admission Dx/Problem (Free Text): Admission Diagnosis/Problem Admission Diagnosis/Problem Alcohol withdrawal syndrome Subjective Update: Patient seen at bedside. No acute distress. Patient does not appear to be diaphoretic or have tremors. Patient states he slept well. Patient denies visual and tactile hallucinations. Restlessness has improved but still present along with some agitation and mood lability. Denies foot pain today. Received lorazepam at 11 PM. Received ibuprofen 400 mg overnight for foot pain. - Review of Systems General: Reports: Night Sweats. Denies: Fever, Chills HEENT: Denies: Headaches, Visual Changes Pulmonary: Denies: Shortness of Breath, Pleuritic Chest Pain, Cough, Sputum Cardiovascular: Denies: Chest Pain, Palpitations, Dyspnea on Exertion, Lightheadedness Gastrointestinal: Reports: Diarrhea. Denies: Abdominal Pain, Constipation, Decreased Appetite Genitourinary: Denies: Dysuria Musculoskeletal: Reports: Foot Pain. Denies: Leg Pain Skin: Denies: Cyanosis, Rash Neurological: Reports: Paresthesia. Denies: Confusion, Dizziness, Headache, Numbness, Pre-Existing Deficit, Syncope, Difficulty Walking Psychiatric: Reports: Mood Lability, Agitation. Denies: Cravings - Patient Data Vitals - Most Recent: Last Vital Signs Temp 97.3 F 01/14/21 07:59 Pulse 71 01/14/21 07:59 Resp 16 01/14/21 07:59 BP 137/78 01/14/21 07:59 Pulse Ox 97 01/14/21 07:59 Weight - Most Recent: 190 lb 1.6 oz I&O - Last 24 Hours: Intake & Output 01/13/21 01/14/21 01/14/21 22:59 06:59 14:59 Intake Total 1080 1000 Balance 1080 1000 Lab Results Last 24 Hours: Laboratory Results - last 24 hr 01/14/21 01/14/21 Range/Units 07:29 07:29 WBC 6.61 (4.0-11.0) K/uL RBC 4.19 L (4.50-5.90) M/uL Hgb 14.5 (13.0-17.0) g/dL Hct 42.0 (38.0-50.0) % MCV 100.2 H (80.0-98.0) fL MCH 34.6 H (27.0-32.0) pg MCHC 34.5 (31.0-37.0) g/dL RDW Std Deviation 45.2 (28.0-62.0) fl RDW Coeff of Greg 12 (11.0-15.0) % Plt Count 215 (150-400) K/uL MPV 10.60 (7.40-12.00) fL Nucleated RBC % 0.0 /100WBC Nucleated RBCs # 0 K/uL Sodium 139 (136-148) mmol/L Potassium 4.3 (3.5-5.1) mmol/L Chloride 106 (98-107) mmol/L Carbon Dioxide 23.2 (21.0-32.0) mmol/L BUN 17 (7.0-18.0) mg/dL Creatinine 0.8 (0.8-1.3) mg/dL Est Cr Clr Drug Dosing 110.17 mL/min Estimated GFR (MDRD) > 60.0 ml/min Glucose 100 (74-106) mg/dL Calcium 8.2 L (8.5-10.1) mg/dL Phosphorus 4.2 (2.6-4.7) mg/dL Magnesium 2.3 (1.8-2.4) mg/dL Total Bilirubin 0.5 (0.2-1.0) mg/dL AST 65 H (15-37) IU/L ALT 37 (14-63) IU/L Alkaline Phosphatase 92 (46-116) U/L Total Protein 6.7 (6.4-8.2) g/dL Albumin 3.0 L (3.4-5.0) g/dL Globulin 3.7 (2.6-4.0) g/dL Albumin/Globulin Ratio 0.8 L (0.9-1.6) Med Orders - Current: Current Medications Albuterol/Ipratropium (Albuterol/Ipratropium 3.0-0.5 Mg/3 Ml Neb Soln) 3 ml NEB Q4HRRT PRN PRN Reason: Shortness Of Breath/wheezing Folic Acid (Folic Acid 50 Mg/10 Ml Mdv) 1 mg SUBCUT DAILY [facility] Last Admin: 01/14/21 09:12 Dose: 1 mg Documented by: Ibuprofen (Ibuprofen 400 Mg Tab) 400 mg PO Q8H PRN PRN Reason: Pain Last Admin: 01/14/21 11:33 Dose: 400 mg Documented by: Influenza Virus Vaccine (Flu Vacc [id number](65up)/Mf59c/Pf 60 Mcg/0.5 Ml Syringe) 60 mcg IM .ONCE ONE Stop: 01/14/21 12:01 Lorazepam (Lorazepam 2 Mg/Ml Sdv) 0 mg IVPUSH Q4H PRN; Protocol PRN Reason: CIWAA Last Admin: 01/13/21 22:56 Dose: 1 mg Documented by: Nicotine (Nicotine 14 Mg/24 Hr Patch) 14 mg TRDERM DAILY [facility] Last Admin: 01/14/21 09:11 Dose: 14 mg Documented by: Ondansetron HCl (Ondansetron 4 Mg/2 Ml Sdv) 4 mg IVPUSH Q4H PRN PRN Reason: Nausea/Vomiting Thiamine HCl (Thiamine 200 Mg/2 Ml Mdv) 100 mg IV Q24H [facility] Last Admin: 01/13/21 21:36 Dose: 100 mg Documented by: Discontinued Medications Sodium Chloride (Normal Saline) 1,000 mls @ 999 mls/hr IV .Bolus ONE Stop: 01/12/21 01:13 Last Admin: 01/12/21 00:19 Dose: 999 mls/hr Documented by: Thiamine HCl 100 mg/ Sodium (Chloride) 101 mls @ 202 mls/hr IV DAILY [facility] Last Admin: 01/12/21 03:18 Dose: 202 mls/hr Documented by: Lorazepam (Lorazepam 2 Mg/Ml Sdv) 2 mg IVPUSH ONETIME ONE Stop: 01/12/21 00:15 Last Admin: 01/12/21 00:18 Dose: 2 mg Documented by: Lorazepam (Lorazepam 2 Mg/Ml Sdv) 1 mg IVPUSH ONETIME ONE Stop: 01/12/21 01:39 Last Admin: 01/12/21 01:58 Dose: 1 mg Documented by: Potassium Chloride (Potassium Chloride 20 Meq Tab.Er) 40 meq PO ONETIME ONE Stop: 01/13/21 08:16 Last Admin: 01/13/21 09:10 Dose: 40 meq Documented by: - Exam General: Alert, Oriented. No: Lethargic HEENT: Pupils Equal Neck: Trachea Midline Lungs: Clear to Auscultation, Normal Respiratory Effort Cardiovascular: Regular Rate, Regular Rhythm GI/Abdominal Exam: Normal Bowel Sounds, Soft, Non-Tender Extremities: Normal Inspection, Normal Range of Motion (Improved erythema over dorsal aspect of forefoot and medial foot. Tenderness to touch over medial aspect of foot.) Peripheral Pulses: 2+: Dorsalis Pedis (L), Dorsalis Pedis (R) Skin: Warm, Dry Neurological: No New Focal Deficit - Patient Data Lab Results Last 24 hrs: Laboratory Results - last 24 hr 01/14/21 01/14/21 Range/Units 07:29 07:29 WBC 6.61 (4.0-11.0) K/uL RBC 4.19 L (4.50-5.90) M/uL Hgb 14.5 (13.0-17.0) g/dL Hct 42.0 (38.0-50.0) % MCV 100.2 H (80.0-98.0) fL MCH 34.6 H (27.0-32.0) pg MCHC 34.5 (31.0-37.0) g/dL RDW Std Deviation 45.2 (28.0-62.0) fl RDW Coeff of Greg 12 (11.0-15.0) % Plt Count 215 (150-400) K/uL MPV 10.60 (7.40-12.00) fL Nucleated RBC % 0.0 /100WBC Nucleated RBCs # 0 K/uL Sodium 139 (136-148) mmol/L Potassium 4.3 (3.5-5.1) mmol/L Chloride 106 (98-107) mmol/L Carbon Dioxide 23.2 (21.0-32.0) mmol/L BUN 17 (7.0-18.0) mg/dL Creatinine 0.8 (0.8-1.3) mg/dL Est Cr Clr Drug Dosing 110.17 mL/min Estimated GFR (MDRD) > 60.0 ml/min Glucose 100 (74-106) mg/dL Calcium 8.2 L (8.5-10.1) mg/dL Phosphorus 4.2 (2.6-4.7) mg/dL Magnesium 2.3 (1.8-2.4) mg/dL Total Bilirubin 0.5 (0.2-1.0) mg/dL AST 65 H (15-37) IU/L ALT 37 (14-63) IU/L Alkaline Phosphatase 92 (46-116) U/L Total Protein 6.7 (6.4-8.2) g/dL Albumin 3.0 L (3.4-5.0) g/dL Globulin 3.7 (2.6-4.0) g/dL Albumin/Globulin Ratio 0.8 L (0.9-1.6) Result Diagrams: 01/14/21 07:29 01/14/21 07:29 Sepsis Event Note - Evaluation Sepsis Screening Result: No Definite Risk - Focused Exam Vital Signs: Vital Signs Temp Pulse Resp BP Pulse Ox 01/14/21 07:59 97.3 F 71 16 137/78 97 01/14/21 05:30 97 F 78 16 119/80 95 01/14/21 00:09 99 F 83 17 128/73 97 - Problem List & Annotations (1) Alcohol withdrawal SNOMED Code(s): 235306581 Code(s): F10.239 - ALCOHOL DEPENDENCE WITH WITHDRAWAL, UNSPECIFIED Status: Acute Current Visit: Yes Qualifiers: Complication of substance-induced condition: with unspecified complication Qualified Code(s): F10.239 - Alcohol dependence with withdrawal, unspecified (2) Fracture of proximal phalanx of toe of right foot SNOMED Code(s): 38162490 Code(s): S92.911A - UNSP FRACTURE OF RIGHT TOE(S), INIT FOR CLOS FX Status: Acute Current Visit: Yes (3) Tobacco dependence SNOMED Code(s): 80859253 Code(s): F17.200 - NICOTINE DEPENDENCE, UNSPECIFIED, UNCOMPLICATED Status: Acute Current Visit: Yes - Problem List Review Problem List Initiated/Reviewed/Updated: Yes - My Orders Last 24 Hours: My Active Orders 01/15/21 05:11 CBC W/O DIFF,HEMOGRAM [HEME] DAILY COMPREHENSIVE METABOLIC PN,CMP [CHEM] DAILY MAGNESIUM [CHEM] DAILY PHOSPHORUS [CHEM] DAILY 01/16/21 05:11 CBC W/O DIFF,HEMOGRAM [HEME] DAILY COMPREHENSIVE METABOLIC PN,CMP [CHEM] DAILY MAGNESIUM [CHEM] DAILY PHOSPHORUS [CHEM] DAILY - Plan Plan:: Alcohol withdrawal syndrome: Vital signs stable. No history of seizures. -CIWA protocol with lorazepam -Thiamine 100 mg IV daily -Folic acid 1 mg daily -Zofran 4 mg IV prn -Supportive care. -Monitor magnesium and phosphorus. Replete as indicated. First proximal phalanx nondisplaced fracture: -Mayito tape 1st toe to 2nd toe. -Hard sole shoe. -Ice for 20 mins 4 times daily. Elevate foot. Tobacco abuse: Nicotine patch daily.
[2021-01-14] MEDS ORDERED: FLU Vacc QS2021(65UP)/MF59C/PF 60 MCG/0.5 ML Syringe IM ONE (12:00)
[2021-01-14] MEDS: LORazepam 2 MG/ML SDV IVPUSH PRN ×2 (16:09→21:21)
[2021-01-14] MEDS: Thiamine 200 MG/2 ML MDV IV SCH (21:13)
[2021-01-15 07:49] LABS: BLOOD UREA NITROGEN,BUN 15 mg/dL (7.0-18.0); CARBON DIOXIDE,CO2 25.8 mmol/L (21.0-32.0); CHLORIDE,CL 104 mmol/L (98-107); GLUCOSE RANDOM 100 mg/dL (74-106); SODIUM,NA 139 mmol/L (136-148)
[2021-01-15 09:34] VITALS: BP 143/95; PULSE 77
[2021-01-15] MEDS: Folic Acid 50 MG/10 ML MDV SUBCUT SCH (09:36)
[2021-01-15] MEDS: Nicotine 14 MG/24 Hr Patch TRDERM SCH (09:36)
[2021-01-15] MEDS ORDERED: FLU Vacc QS2021(65UP)/MF59C/PF 60 MCG/0.5 ML Syringe IM ONE (10:30)
--- NOTE | 2021-01-15 10:38 | PCM.DCSUM1 ---
Discharge Summary - Discharge Data Discharge Date: 01/15/21 Discharge Disposition: Home, Self-Care 01 Condition: Stable - Referral to Home Health Primary Care Physician: Karuna Crawley NP - Patient Summary/Data Consults: Consultations 01/12/21 08:24 Consult to Spiritual Care [CONS] Routine Hospital Course: 45-year-old male with a history of alcohol abuse who was admitted for alcohol withdrawal. He presented to the ED with complaints of tremors, nausea, and hallucinations. Laboratory work up and EKG were unremarkable. Urine toxicity positive for opiates, amphetamine, methamphetamine, and marijuana. EtOH level < 3. SARS-CoV-2 negative. Patient received 1 L normal saline bolus and 2 mg IV lorazepam which greatly improved symptoms. He was placed on CIWAA protocol with thiamin and folic acid. After three days he reports he is feeling much better and is requesting discharge. Chano is motivated to quit drinking and has friend who has work as a counselor who he will ask for help. He did have right toe pain on admission. Right toe x-ray reported a nondisplaced comminuted fracture and first proximal phalanx, likely extending to involve distal articular surface. He was taught xavier bandaging and given a flat shoe. He is to follow up with [facility] clinic next week. - Patient Instructions Diet: Usual Diet as Tolerated Activity: As Tolerated - Discharge Plan Home Medications: Home Meds . [No Known Home Meds] 09/14/18 [History] Multivitamin [Multi-Vitamin Daily] 1 tab PO DAILY 01/12/21 [History] Patient Handouts: Steps to Quit Smoking, [id number], Alcohol Use Disorder, Managing the Challenge of Quitting Smoking, Health Risks of Smoking, Toe Fracture, [id number], Binge-Drinking Information, Adult, Alcohol Withdrawal Syndrome, [id number] Referrals: Brian Rogers MD [Physician] - 01/23/21 3:30 pm - Discharge Summary/Plan Comment DC Time >30 min.: No Total # of Minutes for Discharge Time: 20 - Patient Data Vitals - Most Recent: Last Vital Signs Temp 36.3 C 01/15/21 09:33 Pulse 77 01/15/21 09:33 Resp 17 01/15/21 09:33 BP 143/95 H 01/15/21 09:33 Pulse Ox 97 01/15/21 09:33 Weight - Most Recent: 86.228 kg I&O - Last 24 hours: Intake & Output 01/14/21 01/15/21 01/15/21 22:59 06:59 14:59 Intake Total 1200 900 Output Total 0 Balance 1200 900 Lab Results - Last 24 hrs: Laboratory Results - last 24 hr 01/15/21 01/15/21 Range/Units 07:14 07:14 WBC 8.09 (4.0-11.0) K/uL RBC 4.31 L (4.50-5.90) M/uL Hgb 14.7 (13.0-17.0) g/dL Hct 42.8 (38.0-50.0) % MCV 99.3 H (80.0-98.0) fL MCH 34.1 H (27.0-32.0) pg MCHC 34.3 (31.0-37.0) g/dL RDW Std Deviation 44.6 (28.0-62.0) fl RDW Coeff of Greg 12 (11.0-15.0) % Plt Count 209 (150-400) K/uL MPV 10.50 (7.40-12.00) fL Nucleated RBC % 0.0 /100WBC Nucleated RBCs # 0 K/uL Sodium 139 (136-148) mmol/L Potassium 4.0 (3.5-5.1) mmol/L Chloride 104 (98-107) mmol/L Carbon Dioxide 25.8 (21.0-32.0) mmol/L BUN 15 (7.0-18.0) mg/dL Creatinine 0.8 (0.8-1.3) mg/dL Est Cr Clr Drug Dosing 110.17 mL/min Estimated GFR (MDRD) > 60.0 ml/min Glucose 100 (74-106) mg/dL Calcium 8.2 L (8.5-10.1) mg/dL Phosphorus 4.1 (2.6-4.7) mg/dL Magnesium 2.3 (1.8-2.4) mg/dL Total Bilirubin 0.5 (0.2-1.0) mg/dL AST 50 H (15-37) IU/L ALT 34 (14-63) IU/L Alkaline Phosphatase 93 (46-116) U/L Total Protein 6.8 (6.4-8.2) g/dL Albumin 3.2 L (3.4-5.0) g/dL Globulin 3.6 (2.6-4.0) g/dL Albumin/Globulin Ratio 0.9 (0.9-1.6) Med Orders - Current: Current Medications Albuterol/Ipratropium (Albuterol/Ipratropium 3.0-0.5 Mg/3 Ml Neb Soln) 3 ml NEB Q4HRRT PRN PRN Reason: Shortness Of Breath/wheezing Folic Acid (Folic Acid 50 Mg/10 Ml Mdv) 1 mg SUBCUT DAILY [facility] Last Admin: 01/15/21 09:36 Dose: 1 mg Documented by: Ibuprofen (Ibuprofen 400 Mg Tab) 400 mg PO Q8H PRN PRN Reason: Pain Last Admin: 01/14/21 11:33 Dose: 400 mg Documented by: Lorazepam (Lorazepam 2 Mg/Ml Sdv) 0 mg IVPUSH Q4H PRN; Protocol PRN Reason: CIWAA Last Admin: 01/14/21 21:21 Dose: 1 mg Documented by: Nicotine (Nicotine 14 Mg/24 Hr Patch) 14 mg TRDERM DAILY [facility] Last Admin: 01/15/21 09:36 Dose: 14 mg Documented by: Ondansetron HCl (Ondansetron 4 Mg/2 Ml Sdv) 4 mg IVPUSH Q4H PRN PRN Reason: Nausea/Vomiting Thiamine HCl (Thiamine 200 Mg/2 Ml Mdv) 100 mg IV Q24H [facility] Last Admin: 01/14/21 21:13 Dose: 100 mg Documented by: Discontinued Medications Sodium Chloride (Normal Saline) 1,000 mls @ 999 mls/hr IV .Bolus ONE Stop: 01/12/21 01:13 Last Admin: 01/12/21 00:19 Dose: 999 mls/hr Documented by: Thiamine HCl 100 mg/ Sodium (Chloride) 101 mls @ 202 mls/hr IV DAILY [facility] Last Admin: 01/12/21 03:18 Dose: 202 mls/hr Documented by: Influenza Virus Vaccine (Flu Vacc [id number](6mos Up)/Pf 60 Mcg/0.5 Ml Syringe) 60 mcg IM .ONCE ONE Stop: 01/15/21 10:31 Lorazepam (Lorazepam 2 Mg/Ml Sdv) 2 mg IVPUSH ONETIME ONE Stop: 01/12/21 00:15 Last Admin: 01/12/21 00:18 Dose: 2 mg Documented by: Lorazepam (Lorazepam 2 Mg/Ml Sdv) 1 mg IVPUSH ONETIME ONE Stop: 01/12/21 01:39 Last Admin: 01/12/21 01:58 Dose: 1 mg Documented by: Potassium Chloride (Potassium Chloride 20 Meq Tab.Er) 40 meq PO ONETIME ONE Stop: 01/13/21 08:16 Last Admin: 01/13/21 09:10 Dose: 40 meq Documented by:
== END 2021-01-15 11:15 | disposition home or self-care (01) | DRG 897 ==
LOC: MW.ED 23:44 → MW.MS 01-12 01:39 → OBSVTOIN 01-12 10:51
PROVIDERS: ADMIT Internal Medicine; ATTEND Internal Medicine
DX: F10.239 Alcohol dependence with withdrawal, unspecified (principal); S92.414A Nondisplaced fracture of proximal phalanx of right great toe, initial encounter for closed fracture; F17.200 Nicotine dependence, unspecified, uncomplicated; E11.9 Type 2 diabetes mellitus without complications; E78.1 Pure hyperglyceridemia; Z20.822 Contact with and (suspected) exposure to COVID-19; W22.8XXA Striking against or struck by other objects, initial encounter
CPT/HCPCS: 36415; 73660-26-T5; 73660-T5; 80053; 80305-QW; 80307; 83735; 84100; 84550; 85025; 85027; 90686; 96365; 96372; 96374; 96375; 96376; 97161-GP; 99285-25; A9270-GY; G0008; G0378; J2060; J3411; J7030; U0002

== ENCOUNTER 2021-02-07 07:34 | Emergency (ER) | payer BC, OTHER ==
[2021-02-07] MEDS ORDERED: Sodium Chloride 0.9% 1,000 ML IV ONE (08:04)
[2021-02-07] MEDS ORDERED: LORazepam 2 MG/ML SDV IVPUSH ONE (08:05)
[2021-02-07] MEDS ORDERED: chlordiazePOXIDE 25 MG Cap PO ONE (08:05)
--- NOTE | 2021-02-07 08:07 | EDM.PDOC ---
ED HPI GENERAL MEDICAL PROBLEM - General Chief Complaint: Drug or Alcohol Abuse Stated Complaint: DETOX Time Seen by Provider: 02/07/21 07:36 Source of Information: Reports: Patient History Limitations: Reports: No Limitations - History of Present Illness INITIAL COMMENTS - FREE TEXT/NARRATIVE: Patient is a 45-year-old male history of EtOH abuse. Patient was seen here last month for alcohol withdrawal. States he has been drinking again since being released. States last drink was about 4-5 hours ago. Patient states that he started to feel some shakes but denies as bas as the last time. Denies any nausea vomiting chest pain or complaints. States that he has only stopped drinking. Denies any HI/SI of others - Related Data Allergies Allergy/AdvReac Type Severity Reaction Status Date / Time No Known Allergies Allergy Verified 02/07/21 07:57 Home Meds: Home Meds . [No Known Home Meds] 09/14/18 [History] Multivitamin [Multi-Vitamin Daily] 1 tab PO DAILY 01/12/21 [History] Past Medical History - Past Health History Medical/Surgical History: Denies Medical/Surgical History HEENT History: Reports: Other (See Below) Other HEENT History: wears glasses, dentures (upper and lower) Respiratory History: Reports: Sleep Apnea Other Respiratory History: sleep apnea went away with gastric bypass Gastrointestinal History: Reports: None Endocrine/Metabolic History: Reports: Other (See Below) Other Endocrine/Metabolic History: pre-diabetes ( went away after gastric bypass) - Infectious Disease History Infectious Disease History: Reports: Chicken Pox, Influenza, Measles - Past Surgical History Respiratory Surgical History: Reports: None GI Surgical History: Reports: Bariatric Procedure Other GI Surgeries/Procedures: gastric bypass 2016 Social & Family History - Family History Family Medical History: No Pertinent Family History - Caffeine Use Caffeine Use: Reports: Coffee, Soda, Tea ED ROS GENERAL - Review of Systems Review Of Systems: See Below Constitutional: Reports: No Symptoms HEENT: Reports: No Symptoms Respiratory: Reports: No Symptoms Cardiovascular: Reports: No Symptoms Endocrine: Reports: No Symptoms GI/Abdominal: Reports: No Symptoms : Reports: No Symptoms Musculoskeletal: Reports: No Symptoms Skin: Reports: No Symptoms Neurological: Reports: Tremors Psychiatric: Reports: No Symptoms Hematologic/Lymphatic: Reports: No Symptoms Immunologic: Reports: No Symptoms ED EXAM, GENERAL - Physical Exam Exam: See Below Exam Limited By: No Limitations General Appearance: Alert, WD/WN, No Apparent Distress Eye Exam: Bilateral Eye: EOMI, PERRL Throat/Mouth: Normal Inspection Head: Atraumatic Neck: Normal Inspection Respiratory/Chest: No Respiratory Distress Cardiovascular: Normal Peripheral Pulses, Regular Rate, Rhythm GI/Abdominal: Normal Bowel Sounds, Soft, Non-Tender Extremities: Normal Inspection, Normal Range of Motion Neurological: Alert, Oriented, CN II-XII Intact, Normal Cognition, Normal Gait Course - Vital Signs Last Recorded V/S: Last Vital Signs Temp 97.2 F 02/07/21 07:37 Pulse 103 H 02/07/21 09:57 Resp 14 02/07/21 09:57 BP 126/89 02/07/21 09:57 Pulse Ox 91 L 02/07/21 09:57 - Orders/Labs/Meds Labs: Laboratory Tests 02/07/21 02/07/21 02/07/21 Range/Units 08:30 08:30 08:32 WBC 7.45 (4.0-11.0) K/uL RBC 4.59 (4.50-5.90) M/uL Hgb 15.8 (13.0-17.0) g/dL Hct 45.1 (38.0-50.0) % MCV 98.3 H (80.0-98.0) fL MCH 34.4 H (27.0-32.0) pg MCHC 35.0 (31.0-37.0) g/dL RDW Std Deviation 44.8 (28.0-62.0) fl RDW Coeff of Greg 13 (11.0-15.0) % Plt Count 201 (150-400) K/uL MPV 10.10 (7.40-12.00) fL Neut % (Auto) 63.9 (48.0-80.0) % Lymph % (Auto) 28.9 (16.0-40.0) % [place] % (Auto) 6.0 (0.0-15.0) % Eos % (Auto) 0.4 (0.0-7.0) % Baso % (Auto) 0.8 (0.0-1.5) % Neut # (Auto) 4.8 (1.4-5.7) K/uL Lymph # (Auto) 2.2 (0.6-2.4) K/uL [place] # (Auto) 0.5 (0.0-0.8) K/uL Eos # (Auto) 0.0 (0.0-0.7) K/uL Baso # (Auto) 0.1 (0.0-0.1) K/uL Nucleated RBC % 0.0 /100WBC Nucleated RBCs # 0 K/uL Sodium 137 (136-148) mmol/L Potassium 3.5 (3.5-5.1) mmol/L Chloride 97 L (98-107) mmol/L Carbon Dioxide 24.6 (21.0-32.0) mmol/L BUN 9 (7.0-18.0) mg/dL Creatinine 0.8 (0.8-1.3) mg/dL Est Cr Clr Drug Dosing 110.17 mL/min Estimated GFR (MDRD) > 60.0 ml/min Glucose 115 H (74-106) mg/dL Calcium 8.0 L (8.5-10.1) mg/dL Phosphorus 3.4 (2.6-4.7) mg/dL Magnesium 1.9 (1.8-2.4) mg/dL Total Bilirubin 0.4 (0.2-1.0) mg/dL AST 34 (15-37) IU/L ALT 24 (14-63) IU/L Alkaline Phosphatase 122 H (46-116) U/L Creatine Kinase 153 (26-308) U/L Total Protein 7.8 (6.4-8.2) g/dL Albumin 3.6 (3.4-5.0) g/dL Globulin 4.2 H (2.6-4.0) g/dL Albumin/Globulin Ratio 0.9 (0.9-1.6) Lipase 150 (73-393) U/L Urine Opiates Screen NEGATIVE (NEGATIVE) Ur Oxycodone Screen NEGATIVE (NEGATIVE) Urine Methadone Screen NEGATIVE (NEGATIVE) Ur Barbiturates Screen NEGATIVE (NEGATIVE) Ur Phencyclidine Scrn NEGATIVE (NEGATIVE) Ur Amphetamine Screen NEGATIVE (NEGATIVE) U Methamphetamines Scrn NEGATIVE (NEGATIVE) U Benzodiazepines Scrn NEGATIVE (NEGATIVE) U Cocaine Metab Screen NEGATIVE (NEGATIVE) U Marijuana (THC) Screen POSITIVE (NEGATIVE) Ethyl Alcohol 246 mg/dL Meds: Medications Discontinued Medications Generic Name Dose Route Start Last Admin Trade Name Freq PRN Reason Stop Dose Admin Chlordiazepoxide HCl 50 mg 02/07/21 08:05 02/07/21 08:40 Chlordiazepoxide 25 Mg Cap PO 02/07/21 08:06 50 mg ONETIME ONE Administration Sodium Chloride 1,000 mls @ 999 mls/hr 02/07/21 08:04 02/07/21 08:35 Normal Saline IV 02/07/21 09:04 999 mls/hr .BOLUS ONE Administration Lorazepam 2 mg 02/07/21 08:05 02/07/21 08:41 Lorazepam 2 Mg/Ml Sdv IVPUSH 02/07/21 08:06 2 mg ONETIME ONE Administration Ondansetron HCl 4 mg 02/07/21 08:44 02/07/21 09:06 Ondansetron 4 Mg/2 Ml Sdv IVPUSH 02/07/21 08:45 4 mg ONETIME ONE Administration - Re-Assessments/Exams Free Text/Narrative Re-Assessment/Exam: 02/07/21 10:15 patient has no signs of withdrawal on exam patient alcohol abuse to 50s clinically sober ambulating speaking without issues will be discharged home and given resources. Departure - Departure Time of Disposition: 10:15 Disposition: Home, Self-Care 01 Condition: Good Clinical Impression: Alcohol withdrawal Qualifiers: Complication of substance-induced condition: with unspecified complication Qualified Code(s): F10.239 - Alcohol dependence with withdrawal, unspecified - Discharge Information *PRESCRIPTION DRUG MONITORING PROGRAM REVIEWED*: Not Applicable *COPY OF PRESCRIPTION DRUG MONITORING REPORT IN PATIENT GEORGE: Not Applicable Instructions: Alcohol Withdrawal Syndrome, [id number] Referrals: PCP,None [Primary Care Provider] - Forms: ED Department Discharge Additional Instructions: You were seen today for alcohol detox. Due to alcohol level being 250 you are still actually drank denies any signs of withdrawal. You can refer to [facility] in the area that you can use resources to help out with your drinking. If any other concerning signs or symptoms please return to the ED. The following information is given to patients seen in the emergency department who are being discharged to home. This information is to outline your options for follow-up care. We provide all patients seen in our emergency department with a follow-up referral. The need for follow-up, as well as the timing and circumstances, are variable depending upon the specifics of your emergency department visit. If you don't have a primary care physician on staff, we will provide you with a referral. We always advise you to contact your personal physician following an emergency department visit to inform them of the circumstance of the visit and for follow-up with them and/or the need for any referrals to a consulting specialist. The emergency department will also refer you to a specialist when appropriate. This referral assures that you have the opportunity for follow-up care with a specialist. All of these measure are taken in an effort to provide you with optimal care, which includes your follow-up. Under all circumstances we always encourage you to contact your private physician who remains a resource for coordinating your care. When calling for follow-up care, please make the office aware that this follow-up is from your recent emergency room visit. If for any reason you are refused follow-up, please contact the [facility] Emergency Department at and asked to speak to the emergency department charge nurse. Please follow up with your primary care physician. If you do not have a primary care physician, see below: [facility] [address] [place] [id number] [facility] [address] [place] [id number] Sepsis Event Note (ED) - Evaluation Sepsis Screening Result: No Definite Risk - Focused Exam Vital Signs: Vital Signs Temp Pulse Resp BP Pulse Ox 02/07/21 09:57 103 H 14 126/89 91 L 02/07/21 07:37 97.2 F 98 18 156/92 H 95 - Assessment/Plan Plan: Patient is a 45-year-old male presents today for possible alcohol withdrawal. On exam patient has no noticeable tremors or fasciculations. We will obtain labs alcohol levels and reassess.
[2021-02-07] MEDS ORDERED: Ondansetron 4 MG/2 ML SDV IVPUSH ONE (08:44)
[2021-02-07 09:12] LABS: BLOOD UREA NITROGEN,BUN 9 mg/dL (7.0-18.0); CARBON DIOXIDE,CO2 24.6 mmol/L (21.0-32.0); CHLORIDE,CL 97 mmol/L (98-107); GLUCOSE RANDOM 115 mg/dL (74-106); LIPASE 150 U/L (73-393); POTASSIUM,K 3.5 mmol/L (3.5-5.1); SODIUM,NA 137 mmol/L (136-148)
[2021-02-07 10:32] VITALS: BP 122/76; PULSE 121
== END 2021-02-07 10:33 | disposition home or self-care (01) ==
LOC: MW.ED 07:34
DX: F10.239 Alcohol dependence with withdrawal, unspecified (principal); Y90.8 Blood alcohol level of 240 mg/100 ml or more
CPT/HCPCS: 36415; 80053; 80305; 80307; 82550; 83690; 83735; 84100; 85025; 96374; 96375; 99285; A9270; J2060; J2405; J7030

== ENCOUNTER 2021-03-26 02:35 | Emergency (ER) | payer SELFPAY ==
[2021-03-26] MEDS ORDERED: Sodium Chloride 0.9% 10 ML Syringe FLUSH PRN (03:00)
[2021-03-26] MEDS ORDERED: LORazepam 2 MG/ML SDV IVPUSH ONE (03:00)
[2021-03-26] MEDS ORDERED: Sodium Chloride 0.9% 2.5 ML Syringe FLUSH PRN (03:00)
[2021-03-26] MEDS ORDERED: Sodium Chloride 0.9% 1,000 ML IV ONE (03:00)
[2021-03-26] MEDS ORDERED: Ondansetron 4 MG/2 ML SDV IVPUSH ONE (03:18)
--- NOTE | 2021-03-26 03:18 | EDM.PDOC ---
ED HPI GENERAL MEDICAL PROBLEM - General Chief Complaint: Drug or Alcohol Abuse Stated Complaint: ALCOHOL Time Seen by Provider: 03/26/21 03:06 - History of Present Illness INITIAL COMMENTS - FREE TEXT/NARRATIVE: HISTORY AND PHYSICAL: History of present illness: This is a 45-year-old gentleman with a history significant for alcohol use disorder who has a recent admission in December for alcohol withdrawal who presents ER today with concerns of alcohol withdrawal/DTs. Patient reports that he has had tremors in his legs have been shaking and his hips today have had multiple episodes where they have been abducting and abducting uncontrollably. Patient while I was evaluating him had shown me episodes where he had exaggerated movements of his hips in an abduction and abduction manner. Patient denies any recent fevers, shakes, chills. Patient reports he had nausea and vomiting tonight. Patient denies any diarrhea. Patient has any chest pain or shortness of breath. Patient denies any abdominal pain or discomfort. Patient reports that he is tolerating p.o. solids and liquids well at home and that his last drink was approximately 2 hours prior to arrival. Patient reports that he is having episodes of seeing letters in his room that do not spell anything and that he is having episodes of hallucinations of those letters. Patient reports that he do mollies he expects his urine drug screen to be positive for opiates, amphetamines as well as THC. Review of systems: As per history of present illness and below otherwise all systems reviewed and negative. Past medical history: As per history of present illness and as reviewed below otherwise noncontributory. Surgical history: As per history of present illness and as reviewed below otherwise noncontributory. Social history: No reported history of drug abuse. Family history: As per history of present illness and as reviewed below otherwise noncontributory. Physical exam: This patient was seen and evaluated during the 2019 SARS-CoV-2 novel coronavirus pandemic period. Community viral transmission is ongoing at time of this encounter and the emergency department is operating under pandemic response procedures. Constitutional: Patient is oriented to person, place, and time. Appears well- developed and well-nourished. No distress. HEENT: Moist mucous membranes Head: Normocephalic and atraumatic Eyes: Right eye exhibits no discharge. Left eye exhibits no discharge. No scleral icterus Neck: Normal range of motion. No tracheal deviation present. Cardiovascular: Normal rate and regular rhythm. Pulmonary: Effort normal, no respiratory distress. Abdominal: No distention Musculoskeletal: Normal range of motion Neurologic: Alert and oriented to person, place and time. Skin: [place], warm and dry. Psychiatric: Normal mood and affect. Behavior is normal. Judgment and thought content normal. Nursing note and vital signs have been reviewed Patient has a relatively unremarkable physical exam. Patient has no evidence of tremor when he is distracted however when he starts to me that he is having tremors in his hands his hands start to shake almost in an intentional manner and did not appear to be typical of alcohol withdrawal. Patient tongue has no rotary tremors. Patient is alert awake and orient x3. Patient does appear to be somewhat agitated and anxious in the ED and is tachycardic. Diagnostics: [] Therapeutics: [] Assessment and plan: 45-year-old gentleman who presents ER today secondary to alcohol use disorder, hallucinations and is requesting assistance with alcohol detox and his DTs. I have had a discussion with the patient that is extremely unlikely that he is going through DTs if he has been drinking daily and his last drink was approximately 2 hours ago. Patient reports that he has not been weaning down his alcohol use over the last several days and he has been drinking normal amount so it is highly unlikely that he is going through DTs at this time. Patient is somewhat argumentative insisting that he is going through DTs because he is having [place] although he does admit to utilizing mollies as well as possibly amphetamines 2. I believe that this is more likely to be the cause of his hallucinations and DTs since he had recent alcohol use but we will check an alcohol level, electrolytes and reevaluate the patient. He will be given a dose of Ativan to assist with relaxing and his tachycardia. Patient will be given a dose of Zofran help with his nausea. Patient's labs are all unremarkable except for markedly elevated alcohol level of greater than 350. Patient's urine drug screen was positive for cocaine as well as amphetamines. I have discussed the results with the patient. Patient is unlikely going through DTs given his markedly elevated alcohol level. Patient is been resting comfortably in the ED since receiving the Ativan. Patient has take it to take a train to [place] where his mom has plans to assist him in getting into a detox program. At this time, I believe that the patient is clinically hemodynamically stable for discharge home. He is alert awake and orient x3 and is able to ambulate in the ED with stable gait. Reassessment at the time of disposition demonstrates that the patient is in no acute distress. The patient has remained stable throughout the entire ED visit and is without objective evidence for acute process requiring urgent intervention or hospitalization. The patient is stable for discharge, counseling is provided as documented above, discussed symptomatic treatment and specific conditions for return. I have spoken with the patient/caregiver and discussed todays findings, in addition to providing specific details for the plan of care. Questions are answered and there is agreement with the plan. Definitive disposition and diagnosis as appropriate pending reevaluation and review of above. - Related Data Allergies Allergy/AdvReac Type Severity Reaction Status Date / Time No Known Allergies Allergy Verified 03/26/21 02:49 Home Meds: Home Meds . [No Known Home Meds] 09/14/18 [History] Multivitamin [Multi-Vitamin Daily] 1 tab PO DAILY 01/12/21 [History] Past Medical History - Past Health History Medical/Surgical History: Denies Medical/Surgical History HEENT History: Reports: Other (See Below) Other HEENT History: wears glasses, dentures (upper and lower) Cardiovascular History: Reports: None Respiratory History: Reports: Sleep Apnea Other Respiratory History: sleep apnea went away with gastric bypass Gastrointestinal History: Reports: None Genitourinary History: Reports: None Musculoskeletal History: Reports: None Neurological History: Reports: None Psychiatric History: Reports: Addiction Endocrine/Metabolic History: Reports: Other (See Below) Other Endocrine/Metabolic History: pre-diabetes ( went away after gastric bypass) Hematologic History: Reports: None Immunologic History: Reports: None Oncologic (Cancer) History: Reports: None Dermatologic History: Reports: None - Infectious Disease History Infectious Disease History: Reports: Chicken Pox, Influenza, Measles - Past Surgical History Head Surgeries/Procedures: Reports: None Respiratory Surgical History: Reports: None GI Surgical History: Reports: Bariatric Procedure Other GI Surgeries/Procedures: gastric bypass 2017 Endocrine Surgical History: Reports: None Neurological Surgical History: Reports: None Musculoskeletal Surgical History: Reports: None Dermatological Surgical History: Reports: None Social & Family History - Family History Family Medical History: No Pertinent Family History - Tobacco Use Tobacco Use Status *Q: Current Every Day Tobacco User Years of Tobacco use: 20 Packs/Tins Daily: 1 - Caffeine Use Caffeine Use: Reports: None - Recreational Drug Use Recreational Drug Use: Yes Recreational Drug Type: Reports: Other (see below) Other Recreational Drug Type: Cassie ED ROS GENERAL - Review of Systems Review Of Systems: See Below ED EXAM, GENERAL - Physical Exam Exam: See Below #1 Interpretation EKG Date: 03/26/21 Time: 03:10 EKG Interpretation Comments: EKG: As interpreted by ER physician: [place]: Nonspecific ST-T wave abnormalities Normal axis No evidence of ST elevation AL Normal sinus tachycardic rhythm heart rate of 110 Course - Vital Signs Last Recorded V/S: Last Vital Signs Temp 96.6 F L 03/26/21 02:43 Pulse 140 H 03/26/21 02:43 Resp 16 03/26/21 02:43 BP 173/117 H 03/26/21 02:43 Pulse Ox 95 03/26/21 02:43 - Orders/Labs/Meds Orders: Active Orders 24 hr Category Date Time Status Sodium Chloride 0.9% [Saline Flush] Med 03/26/21 03:00 Active 10 ml FLUSH ASDIRECTED PRN Sodium Chloride 0.9% [Saline Flush] Med 03/26/21 03:00 Active 2.5 ml FLUSH ASDIRECTED PRN Saline Lock Insert [OM.PC] Stat Oth 03/26/21 03:00 Ordered Medication Orders Sodium Chloride (Sodium Chloride 0.9% 10 Ml Syringe) 10 ml FLUSH ASDIRECTED PRN PRN Reason: Keep Vein Open Last Admin: 03/26/21 03:18 Dose: 10 ml Documented by: NAVEEN Sodium Chloride (Sodium Chloride 0.9% 2.5 Ml Syringe) 2.5 ml FLUSH ASDIRECTED PRN PRN Reason: Keep Vein Open Last Admin: 03/26/21 03:18 Dose: 2.5 ml Documented by: NAVEEN Labs: Laboratory Tests 03/26/21 03/26/21 03/26/21 Range/Units 03:13 03:13 03:13 WBC 6.43 (4.0-11.0) K/uL RBC 4.60 (4.50-5.90) M/uL Hgb 16.1 (13.0-17.0) g/dL Hct 44.5 (38.0-50.0) % MCV 96.7 (80.0-98.0) fL MCH 35.0 H (27.0-32.0) pg MCHC 36.2 (31.0-37.0) g/dL RDW Std Deviation 47.1 (28.0-62.0) fl RDW Coeff of Greg 13 (11.0-15.0) % Plt Count 169 (150-400) K/uL MPV 9.50 (7.40-12.00) fL Neut % (Auto) 49.4 (48.0-80.0) % Lymph % (Auto) 37.5 (16.0-40.0) % [place] % (Auto) 10.3 (0.0-15.0) % Eos % (Auto) 0.6 (0.0-7.0) % Baso % (Auto) 2.2 H (0.0-1.5) % Neut # (Auto) 3.2 (1.4-5.7) K/uL Lymph # (Auto) 2.4 (0.6-2.4) K/uL [place] # (Auto) 0.7 (0.0-0.8) K/uL Eos # (Auto) 0.0 (0.0-0.7) K/uL Baso # (Auto) 0.1 (0.0-0.1) K/uL Nucleated RBC % 0.0 /100WBC Nucleated RBCs # 0 K/uL Sodium 139 (136-148) mmol/L Potassium 3.7 (3.5-5.1) mmol/L Chloride 99 (98-107) mmol/L Carbon Dioxide 24.5 (21.0-32.0) mmol/L BUN 12 (7.0-18.0) mg/dL Creatinine 1.1 (0.8-1.3) mg/dL Est Cr Clr Drug Dosing 80.12 mL/min Estimated GFR (MDRD) > 60.0 ml/min Glucose 139 H (74-106) mg/dL Calcium 8.6 (8.5-10.1) mg/dL Magnesium 2.0 (1.8-2.4) mg/dL Total Bilirubin 0.3 (0.2-1.0) mg/dL AST 90 H (15-37) IU/L ALT 29 (14-63) IU/L Alkaline Phosphatase 102 (46-116) U/L Total Protein 8.0 (6.4-8.2) g/dL Albumin 3.9 (3.4-5.0) g/dL Globulin 4.1 H (2.6-4.0) g/dL Albumin/Globulin Ratio 1.0 (0.9-1.6) Urine Color Urine Appearance Urine pH (5.0-8.0) Ur Specific [place] (1.001-1.035) Urine Protein (NEGATIVE) mg/dL Urine Glucose (UA) (NEGATIVE) mg/dL Urine Ketones (NEGATIVE) mg/dL Urine Occult Blood (NEGATIVE) Urine Nitrite (NEGATIVE) Urine Bilirubin (NEGATIVE) Urine Urobilinogen (<2.0) EU/dL Ur Leukocyte Esterase (NEGATIVE) U Hyaline Cast (Auto) (0-2/LPF) Urine RBC (0-2/HPF) Urine WBC (0-5/HPF) Ur Epithelial Cells (NONE-FEW) Urine Bacteria (NEGATIVE) Urine Opiates Screen (NEGATIVE) Ur Oxycodone Screen (NEGATIVE) Urine Methadone Screen (NEGATIVE) Ur Barbiturates Screen (NEGATIVE) Ur Phencyclidine Scrn (NEGATIVE) Ur Amphetamine Screen (NEGATIVE) U Methamphetamines Scrn (NEGATIVE) U Benzodiazepines Scrn (NEGATIVE) U Cocaine Metab Screen (NEGATIVE) U Marijuana (THC) Screen (NEGATIVE) Ethyl Alcohol 379 mg/dL 03/26/21 03/26/21 Range/Units 04:10 04:10 WBC (4.0-11.0) K/uL RBC (4.50-5.90) M/uL Hgb (13.0-17.0) g/dL Hct (38.0-50.0) % MCV (80.0-98.0) fL MCH (27.0-32.0) pg MCHC (31.0-37.0) g/dL RDW Std Deviation (28.0-62.0) fl RDW Coeff of Greg (11.0-15.0) % Plt Count (150-400) K/uL MPV (7.40-12.00) fL Neut % (Auto) (48.0-80.0) % Lymph % (Auto) (16.0-40.0) % [place] % (Auto) (0.0-15.0) % Eos % (Auto) (0.0-7.0) % Baso % (Auto) (0.0-1.5) % Neut # (Auto) (1.4-5.7) K/uL Lymph # (Auto) (0.6-2.4) K/uL [place] # (Auto) (0.0-0.8) K/uL Eos # (Auto) (0.0-0.7) K/uL Baso # (Auto) (0.0-0.1) K/uL Nucleated RBC % /100WBC Nucleated RBCs # K/uL Sodium (136-148) mmol/L Potassium (3.5-5.1) mmol/L Chloride (98-107) mmol/L Carbon Dioxide (21.0-32.0) mmol/L BUN (7.0-18.0) mg/dL Creatinine (0.8-1.3) mg/dL Est Cr Clr Drug Dosing mL/min Estimated GFR (MDRD) ml/min Glucose (74-106) mg/dL Calcium (8.5-10.1) mg/dL Magnesium (1.8-2.4) mg/dL Total Bilirubin (0.2-1.0) mg/dL AST (15-37) IU/L ALT (14-63) IU/L Alkaline Phosphatase (46-116) U/L Total Protein (6.4-8.2) g/dL Albumin (3.4-5.0) g/dL Globulin (2.6-4.0) g/dL Albumin/Globulin Ratio (0.9-1.6) Urine Color YELLOW Urine Appearance HAZY Urine pH 6.0 (5.0-8.0) Ur Specific [place] >= 1.030 (1.001-1.035) Urine Protein 30 H (NEGATIVE) mg/dL Urine Glucose (UA) NEGATIVE (NEGATIVE) mg/dL Urine Ketones NEGATIVE (NEGATIVE) mg/dL Urine Occult Blood MODERATE H (NEGATIVE) Urine Nitrite NEGATIVE (NEGATIVE) Urine Bilirubin NEGATIVE (NEGATIVE) Urine Urobilinogen 1.0 (<2.0) EU/dL Ur Leukocyte Esterase NEGATIVE (NEGATIVE) U Hyaline Cast (Auto) 0-1 (0-2/LPF) Urine RBC 0-3 (0-2/HPF) Urine WBC 0-1 (0-5/HPF) Ur Epithelial Cells RARE (NONE-FEW) Urine Bacteria FEW (NEGATIVE) Urine Opiates Screen NEGATIVE (NEGATIVE) Ur Oxycodone Screen NEGATIVE (NEGATIVE) Urine Methadone Screen NEGATIVE (NEGATIVE) Ur Barbiturates Screen NEGATIVE (NEGATIVE) Ur Phencyclidine Scrn NEGATIVE (NEGATIVE) Ur Amphetamine Screen NEGATIVE (NEGATIVE) U Methamphetamines Scrn POSITIVE (NEGATIVE) U Benzodiazepines Scrn NEGATIVE (NEGATIVE) U Cocaine Metab Screen POSITIVE (NEGATIVE) U Marijuana (THC) Screen NEGATIVE (NEGATIVE) Ethyl Alcohol mg/dL Meds: Medications Generic Name Dose Route Start Last Admin Trade Name Freq PRN Reason Stop Dose Admin Sodium Chloride 10 ml 03/26/21 03:00 03/26/21 03:18 Sodium Chloride 0.9% 10 Ml Syringe FLUSH 10 ml ASDIRECTED PRN Administration Keep Vein Open Sodium Chloride 2.5 ml 03/26/21 03:00 03/26/21 03:18 Sodium Chloride 0.9% 2.5 Ml Syringe FLUSH 2.5 ml ASDIRECTED PRN Administration Keep Vein Open Discontinued Medications Generic Name Dose Route Start Last Admin Trade Name Freq PRN Reason Stop Dose Admin Sodium Chloride 1,000 mls @ 999 mls/hr 03/26/21 03:00 03/26/21 03:10 Normal Saline IV 03/26/21 04:00 999 mls/hr .Bolus ONE Administration Lorazepam 1 mg 03/26/21 03:00 03/26/21 03:17 Lorazepam 2 Mg/Ml Sdv IVPUSH 03/26/21 03:01 1 mg ONETIME ONE Administration Ondansetron HCl 4 mg 03/26/21 03:18 03/26/21 03:27 Ondansetron 4 Mg/2 Ml Sdv IVPUSH 03/26/21 03:19 4 mg ONETIME ONE Administration Departure - Departure Time of Disposition: 04:53 Disposition: Home, Self-Care 01 Condition: Good Clinical Impression: Alcohol abuse, Cocaine use, Amphetamine use disorder, mild - Discharge Information Instructions: Alcohol Use Disorder, Cocaine Use Disorder Referrals: PCP,None [Primary Care Provider] - Forms: ED Department Discharge Additional Instructions: Date your seen and evaluated in ER today secondary to significant alcohol intoxication. Please keep your plans to meet up with your mother so that she can assist you with getting into the detox program in [place] as planned. Please go home and drink plenty of fluids and get plenty rest. Return to the ER if you develop any new or concerning symptoms. The following information is given to patients seen in the emergency department who are being discharged to home. This information is to outline your options for follow-up care. We provide all patients seen in our emergency department with a follow-up referral. The need for follow-up, as well as the timing and circumstances, are variable depending upon the specifics of your emergency department visit. If you don't have a primary care physician on staff, we will provide you with a referral. We always advise you to contact your personal physician following an emergency department visit to inform them of the circumstance of the visit and for follow-up with them and/or the need for any referrals to a consulting specialist. The emergency department will also refer you to a specialist when appropriate. This referral assures that you have the opportunity for follow-up care with a specialist. All of these measure are taken in an effort to provide you with optimal care, which includes your follow-up. Under all circumstances we always encourage you to contact your private physician who remains a resource for coordinating your care. When calling for follow-up care, please make the office aware that this follow-up is from your recent emergency room visit. If for any reason you are refused follow-up, please contact the [facility] Emergency Department at and asked to speak to the emergency department charge nurse. [facility] [address] [place] [address] [place] [address] Sepsis Event Note (ED) - Evaluation Sepsis Screening Result: No Definite Risk - Focused Exam Vital Signs: Vital Signs Temp Pulse Resp BP Pulse Ox 03/26/21 02:43 96.6 F L 140 H 16 173/117 H 95 - My Orders Last 24 Hours: My Active Orders 03/26/21 03:00 Sodium Chloride 0.9% [Saline Flush] 10 ml FLUSH ASDIRECTED PRN Sodium Chloride 0.9% [Saline Flush] 2.5 ml FLUSH ASDIRECTED PRN Saline Lock Insert [OM.PC] Stat - Assessment/Plan Last 24 Hours: My Active Orders 03/26/21 03:00 Sodium Chloride 0.9% [Saline Flush] 10 ml FLUSH ASDIRECTED PRN Sodium Chloride 0.9% [Saline Flush] 2.5 ml FLUSH ASDIRECTED PRN Saline Lock Insert [OM.PC] Stat
[2021-03-26 03:59] LABS: BLOOD UREA NITROGEN,BUN 12 mg/dL (7.0-18.0); CARBON DIOXIDE,CO2 24.5 mmol/L (21.0-32.0); CHLORIDE,CL 99 mmol/L (98-107); GLUCOSE RANDOM 139 mg/dL (74-106); POTASSIUM,K 3.7 mmol/L (3.5-5.1); SODIUM,NA 139 mmol/L (136-148)
[2021-03-26 05:39] VITALS: BP 145/80; PULSE 111
== END 2021-03-26 05:40 | disposition home or self-care (01) ==
LOC: MW.ED 02:35
DX: F10.129 Alcohol abuse with intoxication, unspecified (principal); F14.90 Cocaine use, unspecified, uncomplicated; F15.90 Other stimulant use, unspecified, uncomplicated
CPT/HCPCS: 36415; 80053; 80305; 80307; 81001; 83735; 85025; 93005; 96374; 96375; 99285; J2060; J2405; J7030

== ENCOUNTER 2021-10-20 07:29 | Emergency (ER) | payer SELFPAY ==
[2021-10-20] MEDS ORDERED: Thiamine 200 MG/2 ML MDV IVPUSH STA (08:15)
[2021-10-20] MEDS ORDERED: LORazepam 2 MG/ML SDV IVPUSH STA ×3 (08:16→22:24)
[2021-10-20] MEDS ORDERED: Lactated Ringers 1,000 ML IV STA ×2 (08:26→10:40)
[2021-10-20 10:24] LABS: CARBON DIOXIDE,CO2 24.2 mmol/L (21.0-32.0); POTASSIUM,K 3.3 mmol/L (3.5-5.1)
[2021-10-20] MEDS ORDERED: Magnesium Oxide 400 MG Tab PO ONE (10:41)
[2021-10-20] MEDS ORDERED: Potassium Chloride 10% 20 MEQ/15 ML Soln 30 ML UD Cup PO ONE ×2 (10:41→15:19)
[2021-10-20] MEDS: chlordiazePOXIDE 25 MG Cap PO ONE ×3 (12:04→23:55)
[2021-10-20] MEDS ORDERED: Pantoprazole 80 MG in Sodium Chloride 0.9% 10 ML IVPUSH ONE (12:49)
[2021-10-20] MEDS ORDERED: LORazepam 2 MG/ML SDV ONE ×4 (14:10→23:46)
[2021-10-20] MEDS ORDERED: LORazepam 2 MG/ML SDV IVPUSH ONE ×3 (14:13→23:54)
[2021-10-20] MEDS ORDERED: Sodium Chloride 0.9% 1,000 ML IV SCH (14:45)
[2021-10-20] MEDS ORDERED: LORazepam 2 MG/ML SDV IV SCH (15:00)
[2021-10-20 15:12] LABS: CARBON DIOXIDE,CO2 26.8 mmol/L (21.0-32.0); POTASSIUM,K 3.6 mmol/L (3.5-5.1)
[2021-10-20] MEDS ORDERED: PHENobarbitaL sodium 260 MG in Sodium Chloride 0.9% 100 ML IV STA (15:37)
[2021-10-20] MEDS ORDERED: chlordiazePOXIDE 25 MG Cap ONE ×2 (20:59→23:46)
[2021-10-21 00:12] VITALS: BP 144/97; PULSE 88
[2021-10-25] MEDS: chlordiazePOXIDE 25 MG Cap PO ONE (01:58)
== END 2021-10-21 00:35 ==
LOC: MW.ED 07:29 → MW.MS 11:26 → UNDOADMOB 11:26 → MW.ED 10-21 00:35
DX: F10.239 Alcohol dependence with withdrawal, unspecified (principal); F17.210 Nicotine dependence, cigarettes, uncomplicated; Z79.899 Other long term (current) drug therapy; Z20.822 Contact with and (suspected) exposure to COVID-19
CPT/HCPCS: 36415; 71045; 80053; 80307; 83605; 83735; 85014; 85018; 85025; 85610; 87635; 93005; 96361; 96365; 96375; 96376; 99285; A9270; C9113; J2060; J2560; J3411; J3490; J7030; J7120; 93010; U0002

== ENCOUNTER 2022-01-21 15:51 | Inpatient (IN) | payer SELFPAY ==
[2022-01-21] MEDS ORDERED: Sodium Chloride 0.9% 10 ML Syringe FLUSH PRN (16:09)
[2022-01-21] MEDS ORDERED: LORazepam 2 MG/ML SDV IVPUSH ONE ×2 (16:09→16:57)
[2022-01-21] MEDS ORDERED: Sodium Chloride 0.9% 2.5 ML Syringe FLUSH PRN (16:09)
[2022-01-21] MEDS ORDERED: Folic Acid 1 MG/0.2 ML UD Syringe IV STA (16:22)
[2022-01-21] MEDS ORDERED: Thiamine 100 MG in Sodium Chloride 0.9% 100 ML IV ONE (16:22)
[2022-01-21 16:47] LABS: CARBON DIOXIDE,CO2 19.4 mmol/L (21.0-32.0); POTASSIUM,K 3.7 mmol/L (3.5-5.1)
[2022-01-21] MEDS ORDERED: Magnesium Sulfate (4.06 MEQ/ML) 5 GM/10 ML SDV IV STA (16:50)
[2022-01-21] MEDS ORDERED: Magnesium Sulfate/Water 100 ML ONE (17:31)
[2022-01-21] MEDS ORDERED: Magnesium Sulfate/Water 4 GM in Premix Bag 1 BAG IV ONE (17:45)
[2022-01-21] MEDS: LORazepam 2 MG/ML SDV IVPUSH PRN ×2 (22:04→23:15)
[2022-01-21] MEDS: Sodium Chloride 0.9% 1,000 ML IV SCH (22:05)
[2022-01-22] MEDS: LORazepam 2 MG/ML SDV IVPUSH PRN ×4 (00:12→13:13)
[2022-01-22 06:32] LABS: POTASSIUM,K 3.2 mmol/L (3.5-5.1)
[2022-01-22] MEDS ORDERED: Sodium Phosphate 15 mMole/5 ML SDV IV ONE (07:32)
[2022-01-22] MEDS ORDERED: Potassium Phosphates 30 MMOLE in Sodium Chloride 0.9% 1,000 ML IV ONE (08:00)
[2022-01-22] MEDS: Folic Acid 1 MG/0.2 ML UD Syringe SUBCUT SCH (08:24)
[2022-01-22] MEDS: Enoxaparin 40 MG/0.4 ML Syringe SUBCUT SCH (08:24)
[2022-01-22] MEDS: Thiamine 200 MG/2 ML MDV IV SCH (08:25)
[2022-01-22] MEDS ORDERED: Ondansetron 4 MG/2 ML SDV IVPUSH PRN (08:42)
[2022-01-22] MEDS ORDERED: Thiamine 100 MG in Sodium Chloride 0.9% 100 ML IV SCH (09:00)
[2022-01-22] MEDS: Diazepam 5 MG Tab PO SCH ×2 (11:14→18:41)
[2022-01-22] MEDS: Sodium Chloride 0.9% 1,000 ML IV SCH (23:41)
[2022-01-23] MEDS: Diazepam 5 MG Tab PO SCH ×3 (02:55→18:24)
[2022-01-23 06:40] LABS: CARBON DIOXIDE,CO2 22.9 mmol/L (21.0-32.0); POTASSIUM,K 2.9 mmol/L (3.5-5.1)
[2022-01-23] MEDS ORDERED: Potassium Chloride 20 MEQ Tab.ER PO ONE (07:15)
[2022-01-23] MEDS: Enoxaparin 40 MG/0.4 ML Syringe SUBCUT SCH (07:39)
[2022-01-23] MEDS: Potassium Chloride 100 ML IV SCH ×2 (07:39→09:39)
[2022-01-23] MEDS ORDERED: Melatonin 3 MG Tab PO ONE ×2 (08:30→20:00)
[2022-01-23] MEDS: Folic Acid 1 MG/0.2 ML UD Syringe SUBCUT SCH (08:37)
[2022-01-23] MEDS: Thiamine 200 MG/2 ML MDV IV SCH (08:37)
[2022-01-23] MEDS: Pantoprazole 40 MG Tab.CR PO SCH (10:02)
[2022-01-23] MEDS: Nicotine 7 MG/24 Hr Patch TRDERM SCH (11:32)
[2022-01-24] MEDS: Diazepam 5 MG Tab PO SCH ×3 (02:28→22:15)
[2022-01-24 06:09] LABS: CARBON DIOXIDE,CO2 22.9 mmol/L (21.0-32.0); POTASSIUM,K 3.4 mmol/L (3.5-5.1)
[2022-01-24] MEDS ORDERED: Potassium Chloride 20 MEQ Tab.ER PO ONE (07:29)
[2022-01-24] MEDS: Folic Acid 1 MG/0.2 ML UD Syringe SUBCUT SCH (09:25)
[2022-01-24] MEDS: Enoxaparin 40 MG/0.4 ML Syringe SUBCUT SCH (09:26)
[2022-01-24] MEDS: Pantoprazole 40 MG Tab.CR PO SCH (09:26)
[2022-01-24] MEDS: Thiamine 200 MG/2 ML MDV IV SCH (09:27)
[2022-01-24] MEDS: Nicotine 7 MG/24 Hr Patch TRDERM SCH (10:16)
[2022-01-24] MEDS ORDERED: Magnesium Oxide 400 MG Tab PO ONE (10:45)
[2022-01-24] MEDS ORDERED: Melatonin 3 MG Tab PO ONE (21:00)
[2022-01-25 08:29] LABS: CARBON DIOXIDE,CO2 24.1 mmol/L (21.0-32.0); POTASSIUM,K 3.6 mmol/L (3.5-5.1)
[2022-01-25] MEDS: Enoxaparin 40 MG/0.4 ML Syringe SUBCUT SCH ×2 (08:55→09:15)
[2022-01-25] MEDS: Nicotine 7 MG/24 Hr Patch TRDERM SCH (08:56)
[2022-01-25] MEDS: Folic Acid 1 MG/0.2 ML UD Syringe SUBCUT SCH (08:59)
[2022-01-25] MEDS: Diazepam 5 MG Tab PO SCH (09:00)
[2022-01-25] MEDS: Pantoprazole 40 MG Tab.CR PO SCH (09:01)
[2022-01-25] MEDS: Thiamine 200 MG/2 ML MDV IV SCH (09:02)
[2022-01-25 12:10] VITALS: BP 129/92; PULSE 92
== END 2022-01-25 13:00 | disposition home or self-care (01) | DRG 897 ==
LOC: MW.ED 15:51 → MW.ICU 17:28 → OBSVTOIN 01-23 09:06 → MW.MS 01-23 13:00 → MW.ICU 01-23 13:10 → MW.MS 01-23 18:23
PROVIDERS: ADMIT Internal Medicine; ATTEND Internal Medicine
DX: F10.239 Alcohol dependence with withdrawal, unspecified (principal); E87.6 Hypokalemia; F17.200 Nicotine dependence, unspecified, uncomplicated; G47.30 Sleep apnea, unspecified; Z20.822 Contact with and (suspected) exposure to COVID-19; R44.1 Visual hallucinations; R30.0 Dysuria; R74.01 Elevation of levels of liver transaminase levels
CPT/HCPCS: 36415; 80053; 80307; 81001; 82947; 83735; 84100; 85025; 93005; 97162-GP; A9270-GY; J1650; J2060; J2405; J3411; J3475; J3480; J3490; J7030; U0002

== ENCOUNTER 2022-04-02 12:36 | Inpatient (IN) | payer SELFPAY ==
[2022-04-02] MEDS ORDERED: Sodium Chloride 0.9% 1,000 ML IV ONE (12:57)
[2022-04-02] MEDS ORDERED: Ondansetron 4 MG/2 ML SDV IVPUSH ONE (12:57)
[2022-04-02 13:42] LABS: CORONAVIRUS COVID-19 NAA NEGATIVE (NEGATIVE); INFLUENZA A NAA NEGATIVE (NEGATIVE); INFLUENZA B NAA NEGATIVE (NEGATIVE); RESPIRATORY SYNCYTIAL VIR NAA NEGATIVE (NEGATIVE)
[2022-04-02 15:19] LABS: CARBON DIOXIDE,CO2 17.7 mmol/L (21.0-32.0); POTASSIUM,K 4.1 mmol/L (3.5-5.1)
[2022-04-02] MEDS ORDERED: LORazepam 2 MG/ML SDV IVPUSH STA ×2 (15:55→16:21)
[2022-04-02] MEDS ORDERED: Sodium Chloride 0.9% 1,000 ML IV STA (15:56)
[2022-04-02] MEDS ORDERED: LORazepam 2 MG/ML SDV IVPUSH ONE (21:07)
[2022-04-02] MEDS ORDERED: Ondansetron 4 MG/2 ML SDV IVPUSH PRN (21:08)
[2022-04-02] MEDS: Diazepam 2 MG Tab PO SCH (22:11)
[2022-04-02] MEDS: Thiamine 200 MG/2 ML MDV IVPUSH SCH (22:12)
[2022-04-02] MEDS: Folic Acid 1 MG/0.2 ML UD Syringe SUBCUT SCH (22:49)
[2022-04-02] MEDS: Sodium Chloride 0.9% 1,000 ML IV SCH (22:49)
[2022-04-03] MEDS: LORazepam 2 MG/ML SDV IVPUSH PRN ×5 (00:02→19:59)
[2022-04-03] MEDS ORDERED: LORazepam 2 MG/ML SDV ONE (00:02)
[2022-04-03 05:53] LABS: CARBON DIOXIDE,CO2 24.9 mmol/L (21.0-32.0); POTASSIUM,K 3.6 mmol/L (3.5-5.1)
[2022-04-03] MEDS: Sodium Chloride 0.9% 1,000 ML IV SCH (07:03)
[2022-04-03] MEDS: Diazepam 2 MG Tab PO SCH ×2 (07:39→14:38)
[2022-04-03] MEDS: Thiamine 200 MG/2 ML MDV IVPUSH SCH (08:11)
[2022-04-03] MEDS: Folic Acid 1 MG/0.2 ML UD Syringe SUBCUT SCH (08:11)
[2022-04-03] MEDS: Phosphorus #1 250 MG Tab PO SCH ×2 (12:34→17:54)
[2022-04-04] MEDS: LORazepam 2 MG/ML SDV IVPUSH PRN ×4 (00:15→16:41)
[2022-04-04] MEDS: Phosphorus #1 250 MG Tab PO SCH (00:40)
[2022-04-04 06:28] LABS: POTASSIUM,K 3.1 mmol/L (3.5-5.1)
[2022-04-04] MEDS ORDERED: Potassium Chloride 20 MEQ Tab.ER PO ONE ×2 (07:52→11:00)
[2022-04-04] MEDS: Folic Acid 1 MG/0.2 ML UD Syringe SUBCUT SCH (08:35)
[2022-04-04] MEDS: Thiamine 200 MG/2 ML MDV IVPUSH SCH (08:35)
[2022-04-04] MEDS: Nicotine 21 MG/24 Hr Patch TRDERM PRN (08:36)
[2022-04-04] MEDS ORDERED: Diazepam 2 MG Tab PO SCH ×2 (09:00)
[2022-04-04] MEDS: Enoxaparin 40 MG/0.4 ML Syringe SUBCUT SCH (16:41)
[2022-04-05] MEDS: Loperamide 2 MG Cap PO PRN ×2 (04:13→19:49)
[2022-04-05 06:19] LABS: CARBON DIOXIDE,CO2 24.4 mmol/L (21.0-32.0); POTASSIUM,K 4.2 mmol/L (3.5-5.1)
[2022-04-05] MEDS ORDERED: Magnesium Sulfate/Water 2 GM in Premix Bag 1 BAG IV ONE (07:43)
[2022-04-05] MEDS: Thiamine 200 MG/2 ML MDV IVPUSH SCH (08:51)
[2022-04-05] MEDS: Folic Acid 1 MG/0.2 ML UD Syringe SUBCUT SCH (08:52)
[2022-04-05] MEDS: Nicotine 21 MG/24 Hr Patch TRDERM PRN (09:30)
[2022-04-05] MEDS ORDERED: Fluticasone NASAL Spray 16 GM Bottle NASBOTH PRN (13:37)
[2022-04-05] MEDS: Enoxaparin 40 MG/0.4 ML Syringe SUBCUT SCH (15:32)
[2022-04-06] MEDS ORDERED: Melatonin 3 MG Tab PO PRN (00:07)
[2022-04-06 06:16] LABS: CARBON DIOXIDE,CO2 24.9 mmol/L (21.0-32.0); POTASSIUM,K 3.8 mmol/L (3.5-5.1)
[2022-04-06 07:56] VITALS: BP 125/83; PULSE 85
[2022-04-06] MEDS: Thiamine 200 MG/2 ML MDV IVPUSH SCH (09:49)
[2022-04-06] MEDS: Folic Acid 1 MG/0.2 ML UD Syringe SUBCUT SCH (09:50)
== END 2022-04-06 10:50 | disposition home or self-care (01) | DRG 897 ==
LOC: MW.ED 12:36 → MW.MS 17:49 → OBSVTOIN 23:06 → MW.ICU 23:10 → MW.MS 04-04 09:26
PROVIDERS: ADMIT Internal Medicine; ATTEND Internal Medicine
DX: F10.131 Alcohol abuse with withdrawal delirium (principal); I10 Essential (primary) hypertension; Y90.7 Blood alcohol level of 200-239 mg/100 ml; F17.210 Nicotine dependence, cigarettes, uncomplicated; Z20.822 Contact with and (suspected) exposure to COVID-19; Z86.19 Personal history of other infectious and parasitic diseases; Z79.899 Other long term (current) drug therapy; Z98.84 Bariatric surgery status
CPT/HCPCS: 0241U; 36415; 80048; 80053; 80305-QW; 80307; 83690; 83735; 84100; 85025; 99284; A9270-GY; J1650; J2060; J2405; J3411; J3475; J3490; J7030

== ENCOUNTER 2023-10-11 20:13 | Emergency (ER) | payer OTHER ==
[2023-10-11] MEDS: Sodium Chloride 0.9% 1,000 ML IV ONE ×2 (20:20→20:23)
[2023-10-11] MEDS: Sodium Chloride 0.9% 2.5 ML Syringe FLUSH PRN (20:21)
[2023-10-11] MEDS: Sodium Chloride 0.9% 10 ML Syringe FLUSH PRN (20:21)
[2023-10-11] MEDS: LORazepam 2 MG/ML SDV IVPUSH ONE (20:23)
[2023-10-11 20:41] LABS: BASOPHILS PERCENT AUTO 0.9 % (0.0-1.0); EOSINOPHILS ABSOLUTE AUTO 0.21 K/uL (0.00-0.45); EOSINOPHILS PERCENT AUTO 1.9 % (0.0-6.0); HEMATOCRIT 37.6 % (42.0-52.0); HEMOGLOBIN 12.9 g/dL (14.0-18.0); IMMATURE GRAN ABSOLUTE AUTO 0.06 K/uL (0.00-0.05); IMMATURE GRAN PERCENT AUTO 0.5 % (0.0-0.4); LYMPHOCYTES ABSOLUTE AUTO 1.41 K/uL (1.00-4.80); LYMPHOCYTES PERCENT AUTO 12.5 % (24.0-44.0); MEAN CORPUSCULAR HEMOGLOBIN 32.4 pg (28.0-32.0); MEAN CORPUSCULAR HGB CONC 34.3 g/dL (32.0-36.0); MEAN CORPUSCULAR VOLUME 94.5 fL (83.0-99.0); MEAN PLATELET VOLUME 9.5 fL (9.4-12.4); MONOCYTES ABSOLUTE AUTO 0.88 K/uL (0.00-0.80); MONOCYTES PERCENT AUTO 7.8 % (0.0-8.0); NEUTROPHILS ABSOLUTE AUTO 8.65 K/uL (1.80-7.70); NEUTROPHILS PERCENT AUTO 76.4 % (41.0-71.0); PLATELET COUNT,PLT 253 K/uL (150-400); RED BLOOD CELL COUNT 3.98 M/uL (4.52-5.90); WHITE BLOOD CELL COUNT,WBC 11.31 K/uL (3.9-11.3)
[2023-10-11 21:13] LABS: A/G RATIO 1.1 (0.9-1.6); ALBUMIN 3.4 g/dL (3.4-5.0); BILIRUBIN TOTAL 0.1 mg/dL (0.2-1.0); CALCIUM 7.7 mg/dL (8.5-10.1); CARBON DIOXIDE,CO2 25.1 mmol/L (21.0-32.0); EST CRCL DRUG DOSING (CG) 89.3 mL/min; MAGNESIUM 1.9 mg/dL (1.8-2.4); POTASSIUM,K 3.8 mmol/L (3.5-5.1); PROTEIN TOTAL,TP 6.4 g/dL (6.4-8.2)
[2023-10-11 21:21] LABS: APPEARANCE,URINE CLEAR; BILIRUBIN,URINE NEGATIVE (NEGATIVE); COLOR,URINE YELLOW; GLUCOSE,URINE NEGATIVE (NEGATIVE); KETONES,URINE NEGATIVE (NEGATIVE); LEUKOCYTE ESTERASE,URINE NEGATIVE (NEGATIVE); NITRITE,URINE NEGATIVE (NEGATIVE); OCCULT BLOOD,URINE TRACE-INTACT (NEGATIVE); PROTEIN,URINE NEGATIVE (NEGATIVE); UROBILINOGEN,URINE 0.2 EU/dL (<2.0)
[2023-10-11 21:25] LABS: BACTERIA,URINE RARE (NEGATIVE); EPITHELIAL CELLS,URINE RARE (NONE-FEW); RBC,URINE 0-2 (0-2/HPF); WBC,URINE NONE SEEN (0-5/HPF)
[2023-10-11] MEDS: Calcium Carbonate 500 MG Tab.Chew PO ONE (22:06)
[2023-10-11 22:08] VITALS: BP 131/77; PULSE 79
== END 2023-10-11 22:28 | disposition home or self-care (01) ==
LOC: MW.ED 20:13
DX: T67.4XXA Heat exhaustion due to salt depletion, initial encounter (principal); T67.2XXA Heat cramp, initial encounter; E83.51 Hypocalcemia; Z87.19 Personal history of other diseases of the digestive system; Z79.899 Other long term (current) drug therapy; Z75.8 Other problems related to medical facilities and other health care; X30.XXXA Exposure to excessive natural heat, initial encounter; Y99.0 Civilian activity done for income or pay
CPT/HCPCS: 36415; 80053; 81001; 83735; 85025; 93005; 96361; 96374; 99284; A9270; J2060; J3490; J7030

== ENCOUNTER 2024-04-29 06:58 | Day surgery (SDC) | payer OTHER ==
[~2024-04-29 06:58] MED LIST: Famotidine 20 MG/2 ML SDV ONE; Lidocaine 2% 11 ML Jelly Filled Syringe ONE; Lidocaine 2% 5 ML SDV ONE; Propofol 200 MG/20 ML SDV ONE; Ropivacaine 0.5% 5 MG/ML 30 ML SDV ONE; Sodium Chloride 0.9% 20 ML ONE; dexmedeTOMIDine HCl 200 MCG/2 ML SDV ONE; fentaNYL 250 MCG/5 ML SDV ONE
[2024-04-29] MEDS: Lactated Ringers 1,000 ML IV SCH (07:15)
[2024-04-29] MEDS ORDERED: Bupivacaine 0.5%/EPINEPHrine 1:200,000 30 ML SDV ONE (07:23)
[2024-04-29] MEDS ORDERED: EPINEPHrine 1 MG/1 ML Amp ONE (07:24)
[2024-04-29] MEDS ORDERED: Metoclopramide 10 MG/2 ML SDV IVPUSH PRN (07:37)
[2024-04-29] MEDS ORDERED: Phenylephrine HCl In 0.9% NaCl 1 MG/10 ML Syringe IVPUSH PRN (07:37)
[2024-04-29] MEDS ORDERED: Albuterol 0.083% 2.5 MG/3 ML Neb Soln NEB PRN (07:37)
[2024-04-29] MEDS ORDERED: fentaNYL 50 MCG/ML SDV IVPUSH PRN (07:37)
[2024-04-29] MEDS ORDERED: Ondansetron 4 MG/2 ML SDV IVPUSH PRN (07:37)
[2024-04-29] MEDS ORDERED: Morphine 2 MG/ML SYRINGE IVPUSH PRN (07:37)
[2024-04-29] MEDS ORDERED: HYDROmorphone 1 MG/ML Syringe IVPUSH PRN (07:37)
[2024-04-29] MEDS ORDERED: Naloxone 0.4 MG/ML SDV IVPUSH PRN (07:37)
[2024-04-29] MEDS ORDERED: ceFAZolin 1 GM Vial ONE (08:23)
[2024-04-29] MEDS ORDERED: ceFAZolin 2 GM Vial ONE (08:23)
[2024-04-29] MEDS ORDERED: Ketamine HCL/NACL, ISO-OSM 50 MG/5 ML Syringe ONE (08:24)
[2024-04-29] MEDS ORDERED: Phenylephrine HCl In 0.9% NaCl 1 MG/10 ML Syringe ONE (08:32)
[2024-04-29] MEDS ORDERED: Ondansetron 4 MG/2 ML SDV ONE (08:32)
[2024-04-29] MEDS ORDERED: ePHEDrine 50 MG/ML SDV ONE (08:32)
[2024-04-29] MEDS ORDERED: Dexamethasone 4 MG/ML 5 ML MDV ONE (08:32)
[2024-04-29] MEDS ORDERED: Ketorolac 30 MG/ML SDV ONE (09:25)
[2024-04-29] MEDS ORDERED: Sugammadex Sodium 200 MG/2 ML VIAL IV ONE (09:25)
[2024-04-29 13:05] VITALS: BP 109/66; PULSE 88
== END 2024-04-29 11:45 | disposition home or self-care (01) ==
LOC: MW.SDS 06:58
PROVIDERS: ATTEND Orthopaedic Surgery
DX: M75.102 Unspecified rotator cuff tear or rupture of left shoulder, not specified as traumatic (principal); E11.9 Type 2 diabetes mellitus without complications; E78.00 Pure hypercholesterolemia, unspecified; G47.33 Obstructive sleep apnea (adult) (pediatric); Z98.84 Bariatric surgery status; F17.210 Nicotine dependence, cigarettes, uncomplicated
CPT/HCPCS: 29826; 29827; A9270; J0131; J0171; J0690; J1100; J1885; J2371; J2405; J2704; J2795; J3010; J7120; J3490